=== PATIENT | female | born 1930 | race Caucasian/White ===

== ENCOUNTER → 2016-09-02 | Outpatient (CLI) | payer OTHER ==
[~2016-09-02] MED LIST: AMLO-110 PO; CALCTAB7 PO; CITA20TA9 PO; CLOP1TAB54 PO; CYCL0.05 OPB; CYCL0.052 OPB; FLNIN NAE; FLUT0.15 NAE; GLUCTAB7 PO; IMD2X PO; LACT10SO17 PO; LCTL45 PO; MECL1TAB42 PO; MIRA1TAB3 PO; MOML PO; MULT-116 PO; OMEG10007 PO; OMEP40CA PO; OMEP40CA41 PO; OXYC-57 PO; OXYC15TA89 PO; PHEN32.44 PO; POLY1POW2 PO; PRNJ PO; PROTEIN LIQUID PO; SENN-65 PO; SENN-91 PO; TIZA4CAP PO; TIZA4TAB3 PO; [UNRECOGNIZED DRUG - CODE] MT; [UNRECOGNIZED DRUG - CODE] PO
== END ==
LOC: C.LABCC 08:16
PROVIDERS: ATTEND Internal Medicine
DX: G40.909 Epilepsy, unspecified, not intractable, without status epilepticus (principal)

== ENCOUNTER → 2016-12-10 | Outpatient (CLI) | payer OTHER ==
[~2016-12-10] MED LIST changes: +CYCL0.05 OP; -CYCL0.05 OPB; -CYCL0.052 OPB; -FLUT0.15 NAE; -LACT10SO17 PO; -OMEP40CA41 PO; -SENN-91 PO; -TIZA4TAB3 PO; -[UNRECOGNIZED DRUG - CODE] PO
[2016-12-10 08:30] LABS: BASO % 0.3 %; BASO ABS # 0.02 K/uL (0-0.2); COMPLETE YES; EOS % 3.4 %; HEMATOCRIT 40.5 % (37-47); LYMPH % 31.2 %; LYMPH ABS # 2.19 K/uL (1.2-3.4); MEAN CELL VOLUME 88.2 fL (80-100); MEAN CORPUSCULAR HEMOGLOBIN 28.8 pg (25-34); MEAN CORPUSCULAR HGB CONC 32.6 g/dl (32-36); MEAN PLATELET VOLUME 9.6 fL (7.4-10.4); MONO % 10.1 %; PLATELET COUNT 238 K/uL (130-400); RED BLOOD COUNT 4.59 M/uL (4.2-5.4); WHITE BLOOD COUNT 7.01 K/uL (4.8-10.8)
[2016-12-10 08:44] LABS: BLOOD UREA NITROGEN 23 mg/dl (7-18); BUN/CREATININE RATIO 30.8 (10-20); CALCIUM 9.1 mg/dl (8.5-10.1); CARBON DIOXIDE 30 mmol/L (21-32); CHLORIDE 103 mmol/L (98-107); CREATININE 0.73 mg/dl (0.60-1.20); GLUCOSE 89 mg/dl (70-99); POTASSIUM 3.9 mmol/L (3.5-5.1); SODIUM 138 mmol/L (136-145)
== END ==
LOC: C.LABCC 07:54
PROVIDERS: ATTEND Internal Medicine
DX: F32.9 Major depressive disorder, single episode, unspecified (principal); M25.50 Pain in unspecified joint; M81.0 Age-related osteoporosis without current pathological fracture

== ENCOUNTER → 2017-03-16 | Outpatient (CLI) | payer OTHER ==
[~2017-03-16] MED LIST changes: -CYCL0.05 OP; +CYCL0.05 OPB; +CYCL0.052 OPB; +FLUT0.15 NAE; +LACT10SO17 PO; +OMEP40CA41 PO; +SENN-91 PO; +TIZA4TAB3 PO; +[UNRECOGNIZED DRUG - CODE] PO
[2017-03-16 09:04] LABS: ALT/SGPT 43 U/L (12-78); BLOOD UREA NITROGEN 28 mg/dl (7-18); BUN/CREATININE RATIO 43.2 (10-20); CALCIUM 8.8 mg/dl (8.5-10.1); CARBON DIOXIDE 31 mmol/L (21-32); CHLORIDE 101 mmol/L (98-107); CHOLESTEROL 166 mg/dl (0-200); CREATININE 0.65 mg/dl (0.60-1.20); GLUCOSE 87 mg/dl (70-99); POTASSIUM 3.7 mmol/L (3.5-5.1); SODIUM 139 mmol/L (136-145); TRIGLYCERIDES 90 mg/dl (0-150); VERY LOW DENSITY LIPOPROT CALC 18 mg/dl
[2017-03-16 09:07] LABS: ALB/GLOB RATIO 0.7 (0.9-2); ALKALINE PHOSPHATASE 97 U/L (45-117); AST/SGOT 27 U/L (15-37); CHOLESTEROL/HDL RATIO 2.8; HDL CHOLESTEROL 59 mg/dl; LDL CHOLESTEROL CALCULATED 89 mg/dl
== END ==
LOC: C.LABCC 07:58
PROVIDERS: ATTEND Internal Medicine
DX: N18.9 Chronic kidney disease, unspecified (principal); I63.9 Cerebral infarction, unspecified; R56.9 Unspecified convulsions

== ENCOUNTER 2017-04-01 15:23 | Inpatient (IN) | payer OTHER ==
[~2017-04-01] VITALS: Ht 167.6 cm; Wt 66.0 kg
[~2017-04-01 15:23] MED LIST changes: -CITA20TA9 PO; -CYCL0.052 OPB; -FLUT0.15 NAE; -LACT10SO17 PO; -MECL1TAB42 PO; -MIRA1TAB3 PO; -MULT-116 PO; -OMEP40CA41 PO; -PROTEIN LIQUID PO; -SENN-91 PO; -TIZA4TAB3 PO; -[UNRECOGNIZED DRUG - CODE] PO
[2017-04-01] MEDS ORDERED: SENN-91 PO (16:09)
[2017-04-01] MEDS ORDERED: [UNRECOGNIZED DRUG - CODE] PO (16:09)
[2017-04-01] MEDS ORDERED: LACT10SO17 PO (16:09)
[2017-04-01] MEDS ORDERED: OXYC-57 PO (16:09)
[2017-04-01] MEDS ORDERED: OMEP40CA41 PO (16:09)
[2017-04-01] MEDS ORDERED: TIZA4TAB3 PO (16:09)
[2017-04-01] MEDS ORDERED: FLUT0.15 NAE (16:11)
[2017-04-01] MEDS ORDERED: CYCL0.052 OPB (16:11)
[2017-04-01 16:20] LABS: BASO % 0.1 %; BASO ABS # 0.01 K/uL (0-0.2); COMPLETE YES; HEMATOCRIT 46.9 % (37-47); IG% 0.3 %; LYMPH % 5.2 %; MEAN CELL VOLUME 86.2 fL (80-100); MEAN CORPUSCULAR HEMOGLOBIN 31.3 pg (25-34); MEAN CORPUSCULAR HGB CONC 36.2 g/dl (32-36); MEAN PLATELET VOLUME 9.6 fL (7.4-10.4); MONO % 6.5 %; NEUT % 87.9 %; PLATELET COUNT 240 K/uL (130-400); RED BLOOD COUNT 5.44 M/uL (4.2-5.4); WHITE BLOOD COUNT 17.19 K/uL (4.8-10.8)
[2017-04-01 16:28] LABS: INR 1.1 (0.9-1.1); PARTIAL THROMBOPLASTIN RATIO 1.2; PROTHROMBIN TIME (PATIENT) 11.3 SECONDS (9.0-12.0)
[2017-04-01 16:28] LABS: ISTAT CREATININE 0.6 mg/dl (0.6-1.3); ISTAT HEMOGLOBIN 16.3 g/dl (12.0-16.0); ISTAT IONIZED CALCIUM 1.13 mmol/l (1.12-1.32)
[2017-04-01 16:38] LABS: ALT/SGPT 104 U/L (12-78); BLOOD UREA NITROGEN 18 mg/dl (7-18); BUN/CREATININE RATIO 22.3 (10-20); CARBON DIOXIDE 26 mmol/L (21-32); CHLORIDE 95 mmol/L (98-107); CREATININE 0.82 mg/dl (0.60-1.20); GLUCOSE 218 mg/dl (70-99); POTASSIUM 3.1 mmol/L (3.5-5.1); SODIUM 131 mmol/L (136-145)
--- NOTE | 2017-04-01 16:42 | DIAGNOSTIC IMAGING REPORT ---
CT SCAN OF THE BRAIN WITHOUT IV CONTRAST CLINICAL HISTORY: Change in mental status. COMPARISON STUDY: CT of the brain dated 04/05/2016. TECHNIQUE: Unenhanced axial CT scan of the brain is performed from the vertex to the skull base. FINDINGS: Brain parenchyma: There are age-related involutional changes noting mild to moderate patchy subcortical and periventricular microangiopathic change. There is no hemorrhage, mass effect, or evidence of acute territorial ischemia by CT criteria. Small chronic lacunar infarcts are identified in the caudate heads. Schuler-white matter is preserved. No extra-axial fluid collection is seen. Ventricles, sulci, cisterns: Prominent secondary to involutional change. Intracranial vasculature: There is atherosclerotic calcification of the cavernous carotid and vertebral arteries. Calvarium: Unremarkable. Sinuses and mastoids: The visualized paranasal sinuses are clear. The mastoid air cells are well pneumatized. Orbits: The bony orbits are grossly intact. There are bilateral ocular lens implants. IMPRESSION: Senescent changes as above with no hemorrhage, mass effect, or evidence of acute territorial ischemia by CT criteria. Electronically signed by: Jovi Walker M.D. 04/01/2017 4:41 PM Dictated Date/Time: 04/01/2017 4:38 PM
[2017-04-01 16:43] LABS: ALKALINE PHOSPHATASE 125 U/L (45-117); AST/SGOT 94 U/L (15-37)
[2017-04-01] MEDS ORDERED: OPTIRAY 320 IV PRN (16:45)
--- NOTE | 2017-04-01 16:51 | DIAGNOSTIC IMAGING REPORT ---
CT ANGIOGRAPHY OF THE CHEST, PULMONARY EMBOLUS PROTOCOL CLINICAL HISTORY: Right-sided chest pain. Shortness of breath. Evaluate for pulmonary embolus. COMPARISON STUDY: Chest CT April 05, 2016. TECHNIQUE: Following IV administration of 88 mL of Optiray-320, helical axial images of the chest were obtained utilizing the pulmonary embolus protocol. Maximal intensity projections and sagittal and coronal reformats were viewed on an independent 3D workstation. IV contrast was administered without complication. A dose lowering technique was utilized adhering to the principles of ALARA. CT DOSE: 838.94 mGy.cm FINDINGS: This exam is significantly compromised by respiratory motion artifact. There is no central pulmonary embolus. The remainder of the pulmonary arteries are suboptimally assessed due to motion artifact. The heart is moderately enlarged. There is no pericardial effusion. There is extensive atherosclerotic plaque of the thoracic aorta without evidence of dissection. No pneumothorax or pleural effusion is present. Extensive secretions are noted within the left lower lobe bronchus extending into the segmental bronchi of the left lower lobe. There are also secretions within the right lower lobe segmental bronchi. There are bilateral lower lobe airspace opacities with mild volume loss. There is mild lingular opacity. A few old thoracic spine compression fractures are present. Upper abdomen is unremarkable. Left breast is surgically absent. There is no thoracic lymphadenopathy. A left lobe hypodense thyroid nodule is noted. IMPRESSION: 1. No central pulmonary emboli. Remainder of pulmonary arteries suboptimally assessed due to respiratory motion. 2. Extensive secretions within the bilateral lower lobe bronchi with mild bilateral lower lobe opacities. The findings raise the possibility of aspiration. 3. Moderate cardiomegaly. 4. Small hiatal hernia. Electronically signed by: Bishop Howell M.D. 04/01/2017 4:49 PM Dictated Date/Time: 04/01/2017 4:38 PM
[2017-04-01 16:57] LABS: URINE APPEARANCE CLOUDY (CLEAR); URINE COLOR DK YELLOW; URINE EPITHELIAL CELL AUTO >30 /lpf (0-5); URINE NITRITE NEG (NEG); URINE SPECIFIC GRAVITY 1.031 (1.000-1.030); UROBILINOGEN NEG (NEG)
[2017-04-01] MEDS ORDERED: LEVAQUIN 750MG / 150ML D5W IV ONE (17:00)
[2017-04-01] MEDS ORDERED: SODIUM CHLORIDE 0.9% 500ML 500 ML IV STA (17:02)
[2017-04-01 17:08] LABS: MANUAL MICROSCOPIC REQUIRED? NO; REVIEW REQ? YES
[2017-04-01 17:10] LABS: URINE BILIRUBIN NEG (NEG)
[2017-04-01 18:00] VITALS: BP 189/108; PULSE 117; PULSE 122; TEMP 37.3; O2SAT 92; Ht 167.6 cm; Wt 66.0 kg
[2017-04-01] MEDS: LABETALOL HCL IV 5 MG/ML 20ML IV PRN (18:44)
[2017-04-01] MEDS ORDERED: NITROGLYCERIN 0.4 MG SL PER TAB CHARGE SL PRN (18:45)
[2017-04-01] MEDS ORDERED: ONDANSETRON INJ 2 MG/ML 2 ML VIAL IV PRN (18:45)
[2017-04-01] MEDS ORDERED: ACETAMINOPHEN 325 MG TAB PO PRN (18:45)
[2017-04-01] MEDS ORDERED: CONSULT PHARMACY STA (18:50)
[2017-04-01] MEDS ORDERED: DEXTROSE 50% 50 ML SYR IV PRN (19:00)
[2017-04-01] MEDS ORDERED: GLUCAGON FOR INJ 1 MG VIAL SQ PRN (19:00)
[2017-04-01] MEDS ORDERED: GLUCOSE 10 TABS/TUBE PO PRN (19:00)
[2017-04-01] MEDS ORDERED: GLUCOSE 40% GEL 15 GM TUBE PO PRN (19:00)
[2017-04-01] MEDS ORDERED: LEVOFLOXACIN CONSULT ACTIVE PRN (19:15)
[2017-04-01] MEDS ORDERED: PIPERACILL/TAZOBAC CONSULT ACTIVE PRN (19:15)
--- NOTE | 2017-04-01 19:21 | EMERGENCY ROOM VISIT NOTE ---
History Report prepared by Abebe: Carlos Hilton Under the Supervision of: Dr. Leif Burger M.D. First contact with patient: 15:29 Chief Complaint: SHORTNESS OF BREATH Stated Complaint: SOB History of Present Illness The patient is a 86 year old female who presents to the Emergency Room with complaints of a sore throat that began last week. This history is limited secondary to the patient's dementia. The patient is bed ridden in a senior living. At this time, the patient began complaining of a sore throat which then progressed to an altered mental status over the past three days. The patient is currently short of breath, experiencing right sided chest pain with deep inhalation, and complaining of pain to her legs and buttocks. Source of History: senior living notes History Limited By: dementia Onset: 1 week ago Position: throat Symptom Intensity: moderate Quality: other (Soreness) Timing: constant Associated Symptoms: + chest pain (right sided with inhalation), + SOB Note: She is having bilateral leg pain and pain to her buttocks. Along with this, she is more mentally altered. Review of Systems ROS is limited secondary to the patient's dementia. Past Medical & Surgical Medical Problems: (1) Breast cancer (2) Breast cancer (3) CKD (chronic kidney disease), stage III (4) CVA (cerebral vascular accident) (5) Dehydration (6) HTN (hypertension) (7) Multiple sclerosis (8) Osteoarthritis (9) Pneumonia (10) PVD (peripheral vascular disease) (11) Seizure disorder (12) Stroke Surgical Problems: (1) H/O left mastectomy (2) S/P surgical manipulation of ankle joint Family History Omitted secondary to the patient's age. Social History Smoking Status: Never Smoker Marital Status: Housing Status: senior living Occupation Status: retired Current/Historical Medications Scheduled Amlodipine (Norvasc), 5 MG PO DAILY Calcium Carbonate-Vitamin D W/ (Caltrate 600 Plus), 2 TABS PO DAILY Citalopram Hydrobromide (Celexa), 20 MG PO DAILY Clopidogrel Bisulfate (Plavix), 75 MG PO DAILY Cyclosporine (Ophth) (Restasis), 1 DROP OPB Q12 Fish Oil ([place]wick-3), 1,200 MG PO DAILY Fluticasone Propionate (Nasal) (Flonase Allergy Relief), 2 SPRAYS VLADISLAV DAILY Wjintnsqbup-Xklhgzpkvpe-Gkl C- (Glucosamine Chondroitin), 1 TAB PO BID Meclizine Hcl (Meclizine Hcl), 25 MG PO QAM Mirabegron (Myrbetriq Er), 50 MG PO DAILY Multiple Vitamins W/ Minerals (Theragran-M), 1 TAB PO QAM Omeprazole (Prilosec), 40 MG PO DAILY Oxycodone HCl (Oxycodone HCl ER), 15 MG PO Q12 Sennosides-Docusate Sodium (Senna S), 2 TABS PO BID Tizanidine Hcl (Zanaflex), 4 MG PO DAILY [Protein Liquid], 30 ML PO BID Scheduled PRN Lactulose (Chronulac), 45 ML PO BID PRN for Constipation Oxycodone/Acetaminophen 5MG/325MG (Percocet 5MG/325MG), 1 TABLET PO Q4H PRN for Pain Oxycodone/Acetaminophen 5MG/325MG (Percocet 5MG/325MG), 2 TABS PO Q4H PRN for Severe Pain Allergies Coded Allergies: Adhesives (Verified Allergy, Mild, RASH AND BLISTERING, 02/08/16) Hydantoins (Verified Allergy, Unknown, 02/08/16) Mesalamine (Verified Allergy, Unknown, 02/08/16) Phenytoin (Verified Allergy, Unknown, 02/08/16) Physical Exam Vital Signs Date Time Temp Pulse Resp B/P (MAP) Pulse Ox O2 Delivery O2 Flow Rate FiO2 04/01/17 16:19 126 04/01/17 15:30 36.9 118 26 196/114 87 Room Air 04/01/17 15:30 94 Nasal Cannula 6.0 04/01/17 15:30 93 Nasal Cannula 6.0 Physical Exam Constitutional: Vital signs reviewed. Eyes: Pupils are equal round reactive to light. Conjunctiva are noninjected. ENT: Pharynx is clear without erythema or exudate. Mucous membranes are dry. Neck supple without meningeal signs. Respiratory: Rhonchi bilaterally. O2Sat at high 80's on room air. Breath sounds are equal bilaterally. Cardiovascular: Tachycardic. Heart rate 115. No rubs or gallops. GI: Soft, nondistended and nontender. Bowel sounds are present. Musculoskeletal: No peripheral edema. No lower extremity tenderness. Integumentary: No cyanosis. Neurological: The patient is awake and alert. Cranial nerves II-XII are intact. Motor is 5 out of 5 all extremities. Sensation is intact to light touch all extremities. Normal speech. No pronator drift. No limb ataxia. Psychiatric: Normal affect. Medical Decision & Procedures ER Provider Diagnostic Interpretation: Radiology results as stated below per my review and the radiologist's interpretation: CT SCAN OF THE BRAIN WITHOUT IV CONTRAST CLINICAL HISTORY: Change in mental status. COMPARISON STUDY: CT of the brain dated 04/05/2016. TECHNIQUE: Unenhanced axial CT scan of the brain is performed from the vertex to the skull base. FINDINGS: Brain parenchyma: There are age-related involutional changes noting mild to moderate patchy subcortical and periventricular microangiopathic change. There is no hemorrhage, mass effect, or evidence of acute territorial ischemia by CT criteria. Small chronic lacunar infarcts are identified in the caudate heads. Schuler-white matter is preserved. No extra-axial fluid collection is seen. Ventricles, sulci, cisterns: Prominent secondary to involutional change. Intracranial vasculature: There is atherosclerotic calcification of the cavernous carotid and vertebral arteries. Calvarium: Unremarkable. Sinuses and mastoids: The visualized paranasal sinuses are clear. The mastoid air cells are well pneumatized. Orbits: The bony orbits are grossly intact. There are bilateral ocular lens implants. IMPRESSION: Senescent changes as above with no hemorrhage, mass effect, or evidence of acute territorial ischemia by CT criteria. Electronically signed by: Jovi Walker M.D. 04/01/2017 4:41 PM Dictated Date/Time: 04/01/2017 4:[address] ANGIOGRAPHY OF THE CHEST, PULMONARY EMBOLUS PROTOCOL CLINICAL HISTORY: Right-sided chest pain. Shortness of breath. Evaluate for pulmonary embolus. COMPARISON STUDY: Chest CT April 05, 2016. TECHNIQUE: Following IV administration of 88 mL of Optiray-320, helical axial images of the chest were obtained utilizing the pulmonary embolus protocol. Maximal intensity projections and sagittal and coronal reformats were viewed on an independent 3D workstation. IV contrast was administered without complication. A dose lowering technique was utilized adhering to the principles of ALARA. CT DOSE: 838.94 mGy.cm FINDINGS: This exam is significantly compromised by respiratory motion artifact. There is no central pulmonary embolus. The remainder of the pulmonary arteries are suboptimally assessed due to motion artifact. The heart is moderately enlarged. There is no pericardial effusion. There is extensive atherosclerotic plaque of the thoracic aorta without evidence of dissection. No pneumothorax or pleural effusion is present. Extensive secretions are noted within the left lower lobe bronchus extending into the segmental bronchi of the left lower lobe. There are also secretions within the right lower lobe segmental bronchi. There are bilateral lower lobe airspace opacities with mild volume loss. There is mild lingular opacity. A few old thoracic spine compression fractures are present. Upper abdomen is unremarkable. Left breast is surgically absent. There is no thoracic lymphadenopathy. A left lobe hypodense thyroid nodule is noted. IMPRESSION: 1. No central pulmonary emboli. Remainder of pulmonary arteries suboptimally assessed due to respiratory motion. 2. Extensive secretions within the bilateral lower lobe bronchi with mild bilateral lower lobe opacities. The findings raise the possibility of aspiration. 3. Moderate cardiomegaly. 4. Small hiatal hernia. Electronically signed by: Bishop Howell M.D. 04/01/2017 4:49 PM Dictated Date/Time: 04/01/2017 4:38 PM Laboratory Results 04/01/17 16:08 Red Blood Count 5.44, Mean Corpuscular Volume 86.2, Mean Corpuscular Hemoglobin 31.3, Mean Corpuscular Hemoglobin Concent 36.2, Mean Platelet Volume 9.6, Neutrophils (%) (Auto) 87.9, Lymphocytes (%) (Auto) 5.2, Monocytes (%) (Auto) 6.5, Eosinophils (%) (Auto) 0.0, Basophils (%) (Auto) 0.1, Neutrophils # (Auto) 15.10, Lymphocytes # (Auto) 0.90, Monocytes # (Auto) 1.12, Eosinophils # (Auto) 0.00, Basophils # (Auto) 0.01 04/01/17 16:08 Test 04/01/17 15:50 04/01/17 16:08 04/01/17 16:15 Urine Color DK YELLOW Urine Appearance CLOUDY (CLEAR) Urine pH 5.0 (4.5-7.5) Urine Specific [place] 1.031 (1.000-1.030) Urine Protein 3+ (NEG) Urine Glucose (UA) 3+ (NEG) Urine Ketones 1+ (NEG) Urine Occult Blood 2+ (NEG) Urine Nitrite NEG (NEG) Urine Bilirubin NEG (NEG) Urine Urobilinogen NEG (NEG) Urine Leukocyte Esterase NEG (NEG) Urine WBC (Auto) 1-5 /hpf (0-5) Urine RBC (Auto) 10-30 /hpf (0-4) Urine Hyaline Casts (Auto) 5-10 /lpf (0-5) Urine Epithelial Cells (Auto) >30 /lpf (0-5) Urine Bacteria (Auto) 1+ (NEG) Urine Renal Epithelial Cells /lpf (0-5) Urine Yeast (Auto) PRESENT (NONE PRSENT) White Blood Count 17.19 K/uL (4.8-10.8) Red Blood Count 5.44 M/uL (4.2-5.4) Hemoglobin 17.0 g/dL (12.0-16.0) Hematocrit 46.9 % (37-47) Mean Corpuscular Volume 86.2 fL (80-100) Mean Corpuscular Hemoglobin 31.3 pg (25-34) Mean Corpuscular Hemoglobin Concent 36.2 g/dl (32-36) Platelet Count 240 K/uL (130-400) Mean Platelet Volume 9.6 fL (7.4-10.4) Neutrophils (%) (Auto) 87.9 % Lymphocytes (%) (Auto) 5.2 % Monocytes (%) (Auto) 6.5 % Eosinophils (%) (Auto) 0.0 % Basophils (%) (Auto) 0.1 % Neutrophils # (Auto) 15.10 K/uL (1.4-6.5) Lymphocytes # (Auto) 0.90 K/uL (1.2-3.4) Monocytes # (Auto) 1.12 K/uL (0.11-0.59) Eosinophils # (Auto) 0.00 K/uL (0-0.5) Basophils # (Auto) 0.01 K/uL (0-0.2) RDW Standard Deviation 43.1 fL (36.4-46.3) RDW Coefficient of Variation 13.8 % (11.5-14.5) Immature Granulocyte % (Auto) 0.3 % Immature Granulocyte # (Auto) 0.06 K/uL (0.00-0.02) Prothrombin Time 11.3 SECONDS (9.0-12.0) Prothromb Time International Ratio 1.1 (0.9-1.1) Activated Partial Thromboplast Time 30.8 SECONDS (21.0-31.0) Partial Thromboplastin Ratio 1.2 Est Creatinine Clear Calc Drug Dose 46.1 ml/min Estimated GFR () 75.1 Estimated GFR (Non- 64.8 BUN/Creatinine Ratio 22.3 (10-20) Calcium Level 10.0 mg/dl (8.5-10.1) Total Bilirubin 1.1 mg/dl (0.2-1) Direct Bilirubin 0.5 mg/dl (0-0.2) Aspartate Amino Transf (AST/SGOT) 94 U/L (15-37) Alanine Aminotransferase (ALT/SGPT) 104 U/L (12-78) Alkaline Phosphatase 125 U/L (45-117) Ammonia 10.1 umol/L (11-32) Troponin I < 0.015 ng/ml (0-0.045) Total Protein 8.0 gm/dl (6.4-8.2) Albumin 3.3 gm/dl (3.4-5.0) Procalcitonin 0.18 ng/ml (0-0.5) Bedside Hemoglobin 16.3 g/dl (12.0-16.0) Bedside Hematocrit 48 % (37-47) Bedside Sodium 135 mEq/L (135-144) Bedside Potassium 3.2 mEq/L (3.3-5.0) Bedside Chloride 94 mEq/L (101-112) Bedside Total CO2 26 mEq/l (24-31) Anion Gap 19.0 mmol/L (16-25) Bedside Blood Urea Nitrogen 18 mg/dl (7-18) Bedside Creatinine 0.6 mg/dl (0.6-1.3) Bedside Glucose (other) 226 mg/dl (70-99) Bedside Ionized Calcium (Kaden) 1.13 mmol/l (1.12-1.32) Laboratory results as reviewed by me. ECG Indication: altered mental status, SOB/dyspnea Rate (beats per minute): 117 Rhythm: sinus tachycardia Findings: nonspecific-ST abn, no ectopy, other (No ST elevations) ED Course 1529: The patient was evaluated in room A11B. A complete history and physical exam was performed. 1700: Ordered Levofloxacin 750 mg IV 1702: Ordered Sodium Chloride 500 ml @ 999 mls/hr IV 1700: I updated the patient and her family at this time. We discussed her tests results. She is still tachycardic with a rate of 83 and a pulse ox of 83% on 6L of oxygen. 1716: [facility]. We discussed the patient and her results. The patient will be further evaluated by them as an inpatient. Medical Decision This is an 86-year-old female presents with shortness breath, change in mental status and hypoxia. Differential diagnosis includes pulmonary embolism, acute coronary syndrome, pneumonia, pleural effusion, sepsis. I did perform a limited focused review of portions of the patient's old chart on the electronic medical record. The patient has had no recent pertinent visits to this hospital. I did evaluate the patient as noted above. I did obtain history from the patient as well as the nurses due to her dementia. She had a sore throat about a week ago and then became increasingly confused over the past several days. She complains of some right-sided chest discomfort in the lower chest when she takes a deep breath. She also says she is slightly short of breath. She is hypoxemic. She was given supplemental oxygen via nasal cannula. IV access was established. The patient was placed on a continuous cardiac tech. I did order and personally review the patient's 12-lead EKG as described above. I did order and review the patient's blood work as noted in the electronic medical record. Her white blood cell count and lactic acid were elevated. Blood cultures were obtained. I did order a CT of the chest. I did review the images myself as well as the radiology report as described above. There is no evidence of pulmonary embolism. She does have bilateral basilar infiltrates. I did treat her with IV Levaquin. I did discuss the test results with the patient and her family member. I did discuss the case with the hospitalist and case liner. Medication Reconcilliation Current Medication List: was personally reviewed by me Blood Pressure Screening Patient's blood pressure: Elevated blood pressure Blood pressure disposition: Referred to PCP Consults Time Called: 1713 Consulting Physician: Dr. Toussaint - [facility] Returned Call: [phone] We discussed the patient's case. They will be evaluating the patient for further management. Impression Primary Impression: Bilateral pneumonia Additional Impressions: Change in mental status Hypoxia Scribe Attestation The scribe's documentation has been prepared under my direct and personally reviewed by me in its entirety. I confirm that the note above accurately reflects all work, treatment, procedures, and medical decision making performed by me. Departure Information Dispostion Being Evaluated By Hospitalist Referrals No Doctor, Assigned (PCP) Patient Instructions My [facility] Problem Qualifiers Primary Impression: Bilateral pneumonia Pneumonia type: due to unspecified organism Lung location: lower lobe of lung Qualified Codes: J18.9 - Pneumonia, unspecified organism Additional Impressions: Change in mental status Altered mental status type: unspecified Qualified Codes: R41.82 - Altered mental status, unspecified
[2017-04-01] MEDS ORDERED: PIPERACILL/TAZOBAC IV 3.375 GM in DEXTROSE 5% 100ML IV ONE (19:30)
--- NOTE | 2017-04-01 19:32 | History and Physical ---
History & Physical Date & Time of Service: Apr 01, 2017 at 19:18 Chief Complaint: Pneumonia Primary Care Physician: Paula Doctor, Assigned History of Present Illness Source: patient, family, hospital records, long-term Patient is an 86 yr female with PMH of MS, PVD, CKD III, Breast cancer s/p mastectomy, HTN, Paget's disease, dementia, Seizure disorder, TIA, H/O multiple falls and other problems presents from [facility] for evaluation of Nausea, vomiting, diarrhea and chronic abdominal pain. Patient is a poor historian and most of the history is obtained from Patient's niece, ER staff and old records. Patient has been having sore throat and cough associated with fever since 2-3 days duration. Family also reports that she has chronic abdominal pain and developed nausea, vomiting diarrhea since 2 days. She was noted to have high blood pressure and increased heart rate and so was sent to ED for further evaluation. Patient was found to be hypoxic in ED and complained of pleuritic chest pain. She is oriented and mental status seemed to be at baseline. She complains of generalized abdominal pain. No known history of aspiration per family. Also no recent antibiotic use. No other history could be obtained as patient has dementia and is poor historian. Past Medical/Surgical History Medical Problems: (1) Breast cancer Status: Chronic (2) CKD (chronic kidney disease), stage III Status: Chronic (3) CVA (cerebral vascular accident) Status: Chronic (4) HTN (hypertension) Status: Chronic (5) Multiple sclerosis Status: Chronic (6) Osteoarthritis Status: Chronic (7) PVD (peripheral vascular disease) Status: Chronic (8) Seizure disorder Status: Chronic Surgical Problems: (1) H/O left mastectomy Status: Chronic (2) S/P surgical manipulation of ankle joint Status: Chronic Family History could not be obtained Social History Smoking Status: Never Smoker Smokeless Tobacco Use: No Drug Use: none Marital Status: Housing status: assisted living Occupational Status: retired Immunizations History of Influenza Vaccine: Yes Influenza Vaccine Date: Jan 26, 2015 History of Tetanus Vaccine?: Yes Tetanus Immunization Date: Jun 26, 2011 History of Pneumococcal: Yes Pneumococcal Date: Jan 26, 2015 Multi-Drug Resistant Organisms History of MDRO: No Allergies Coded Allergies: Adhesives (Verified Allergy, Mild, RASH AND BLISTERING, 02/08/16) Hydantoins (Verified Allergy, Unknown, 02/08/16) Mesalamine (Verified Allergy, Unknown, 02/08/16) Phenytoin (Verified Allergy, Unknown, 02/08/16) Home Medications Scheduled Amlodipine (Norvasc), 5 MG PO DAILY Calcium Carbonate-Vitamin D W/ (Caltrate 600 Plus), 2 TABS PO DAILY Citalopram Hydrobromide (Celexa), 20 MG PO DAILY Clopidogrel Bisulfate (Plavix), 75 MG PO DAILY Cyclosporine (Ophth) (Restasis), 1 DROP OPB Q12 Fish Oil ([place]-3), 1,200 MG PO DAILY Fluticasone Propionate (Nasal) (Flonase Allergy Relief), 2 SPRAYS VLADISLAV DAILY Gsucaajerid-Pepzppzmqmv-Xco C- (Glucosamine Chondroitin), 1 TAB PO BID Meclizine Hcl (Meclizine Hcl), 25 MG PO QAM Mirabegron (Myrbetriq Er), 50 MG PO DAILY Multiple Vitamins W/ Minerals (Theragran-M), 1 TAB PO QAM Omeprazole (Prilosec), 40 MG PO DAILY Oxycodone HCl (Oxycodone HCl ER), 15 MG PO Q12 Sennosides-Docusate Sodium (Senna S), 2 TABS PO BID Tizanidine Hcl (Zanaflex), 4 MG PO DAILY [Protein Liquid], 30 ML PO BID Scheduled PRN Lactulose (Chronulac), 45 ML PO BID PRN for Constipation Oxycodone/Acetaminophen 5MG/325MG (Percocet 5MG/325MG), 1 TABLET PO Q4H PRN for Pain Oxycodone/Acetaminophen 5MG/325MG (Percocet 5MG/325MG), 2 TABS PO Q4H PRN for Severe Pain Review of Systems could not be obtained Physical Exam Vital Signs Date Time Temp Pulse Resp B/P (MAP) Pulse Ox O2 Delivery O2 Flow Rate FiO2 04/01/17 18:00 37.3 117 20 189/108 (135) 92 Nasal Cannula 4.0 04/01/17 16:19 126 04/01/17 15:30 36.9 118 26 196/114 87 Room Air 04/01/17 15:30 94 Nasal Cannula 6.0 04/01/17 15:30 93 Nasal Cannula 6.0 General Appearance: WD/WN, + pertinent finding (mild distress ) Head: normocephalic, atraumatic Eyes: normal inspection, PERRL, EOMI, sclerae normal ENT: normal ENT inspection, hearing grossly normal Neck: supple, trachea midline Respiratory/Chest: no accessory muscle use, + decreased breath sounds, + rhonchi, + pertinent finding (mild chest tenderness) Cardiovascular: regular rate, rhythm, no edema, no murmur, + tachycardia Abdomen/GI: normal bowel sounds, soft, + tenderness (generalized, no rebound, guarding) Back: normal inspection Extremities/Musculoskelatal: normal inspection, no pedal edema Neurologic/Psych: vacuum kettle cook II-XII nml as tested, no motor/sensory deficits (able to move all extremities), alert, normal mood/affect, oriented x 3 Skin: normal color, warm/dry Diagnostics Laboratory Results Results Past 24 Hours Test 04/01/17 15:50 04/01/17 16:08 04/01/17 16:15 04/01/17 17:32 Range/Units Urine Color DK YELLOW Urine Appearance CLOUDY CLEAR Urine pH 5.0 4.5-7.5 Urine Specific [place] 1.031 1.000-1.030 Urine Protein 3+ NEG Urine Glucose (UA) 3+ NEG Urine Ketones 1+ NEG Urine Occult Blood 2+ NEG Urine Nitrite NEG NEG Urine Bilirubin NEG NEG Urine Urobilinogen NEG NEG Urine Leukocyte Esterase NEG NEG Urine WBC (Auto) 1-5 0-5 /hpf Urine RBC (Auto) 10-30 0-4 /hpf Urine Hyaline Casts (Auto) 5-10 0-5 /lpf Urine Epithelial Cells (Auto) >30 0-5 /lpf Urine Bacteria (Auto) 1+ NEG Urine Renal Epithelial Cells 0-5 /lpf Urine Yeast (Auto) PRESENT NONE PRSENT White Blood Count 17.19 4.8-10.8 K/uL Red Blood Count 5.44 4.2-5.4 M/uL Hemoglobin 17.0 12.0-16.0 g/dL Hematocrit 46.9 37-47 % Mean Corpuscular Volume 86.2 80-100 fL Mean Corpuscular Hemoglobin 31.3 25-34 pg Mean Corpuscular Hemoglobin Concent 36.2 32-36 g/dl Platelet Count 240 130-400 K/uL Mean Platelet Volume 9.6 7.4-10.4 fL Neutrophils (%) (Auto) 87.9 % Lymphocytes (%) (Auto) 5.2 % Monocytes (%) (Auto) 6.5 % Eosinophils (%) (Auto) 0.0 % Basophils (%) (Auto) 0.1 % Neutrophils # (Auto) 15.10 1.4-6.5 K/uL Lymphocytes # (Auto) 0.90 1.2-3.4 K/uL Monocytes # (Auto) 1.12 0.11-0.59 K/uL Eosinophils # (Auto) 0.00 0-0.5 K/uL Basophils # (Auto) 0.01 0-0.2 K/uL RDW Standard Deviation 43.1 36.4-46.3 fL RDW Coefficient of Variation 13.8 11.5-14.5 % Immature Granulocyte % (Auto) 0.3 % Immature Granulocyte # (Auto) 0.06 0.00-0.02 K/uL Prothrombin Time 11.3 9.0-12.0 SECONDS Prothromb Time International Ratio 1.1 0.9-1.1 Activated Partial Thromboplast Time 30.8 21.0-31.0 SECONDS Partial Thromboplastin Ratio 1.2 Sodium Level 131 136-145 mmol/L Potassium Level 3.1 3.5-5.1 mmol/L Chloride Level 95 98-107 mmol/L Carbon Dioxide Level 26 21-32 mmol/L Anion Gap 10.0 19.0 16-25 mmol/L Blood Urea Nitrogen 18 7-18 mg/dl Creatinine 0.82 0.60-1.20 mg/dl Est Creatinine Clear Calc Drug Dose 46.1 ml/min Estimated GFR () 75.1 Estimated GFR (Non- 64.8 BUN/Creatinine Ratio 22.3 10-20 Random Glucose 218 70-99 mg/dl Calcium Level 10.0 8.5-10.1 mg/dl Total Bilirubin 1.1 0.2-1 mg/dl Direct Bilirubin 0.5 0-0.2 mg/dl Aspartate Amino Transf (AST/SGOT) 94 15-37 U/L Alanine Aminotransferase (ALT/SGPT) 104 12-78 U/L Alkaline Phosphatase 125 45-117 U/L Ammonia 10.1 11-32 umol/L Troponin I < 0.015 0-0.045 ng/ml Total Protein 8.0 6.4-8.2 gm/dl Albumin 3.3 3.4-5.0 gm/dl Procalcitonin 0.18 0-0.5 ng/ml Bedside Hemoglobin 16.3 12.0-16.0 g/dl Bedside Hematocrit 48 37-47 % Bedside Sodium 135 135-144 mEq/L Bedside Potassium 3.2 3.3-5.0 mEq/L Bedside Chloride 94 101-112 mEq/L Bedside Total CO2 26 24-31 mEq/l Bedside Blood Urea Nitrogen 18 7-18 mg/dl Bedside Creatinine 0.6 0.6-1.3 mg/dl Bedside Glucose (other) 226 70-99 mg/dl Bedside Ionized Calcium (Kaden) 1.13 1.12-1.32 mmol/l Bedside Lactic Acid Venous 3.49 0.90-1.70 mmol/L Microbiology Results 04/01/17 Blood Culture, Received Pending 04/01/17 Blood Culture, Received Pending Diagnostic Radiology CTA: 1. No central pulmonary emboli. Remainder of pulmonary arteries suboptimally assessed due to respiratory motion. 2. Extensive secretions within the bilateral lower lobe bronchi with mild bilateral lower lobe opacities. The findings raise the possibility of aspiration. 3. Moderate cardiomegaly. 4. Small hiatal hernia. CT head: Senescent changes as above with no hemorrhage, mass effect, or evidence of acute territorial ischemia by CT criteria. EKG EKG: Sinus tachycardia, Non specific ST-T wave changes Impression Assessment and Plan Sepsis: Acute Hypoxic Respiratory failure: HCAP: ? Aspiration Pneumonia Presented with Hypoxia, 87 % on RA CTA :No pulmonary emboli. B/L lower lobe opacities. Possible aspiration Start on Broad spectrum IV abx (Zosyn, Levaquin) IV fluids Procalcitonin: normal POC lactate elevated Speech and swallow eval NPO for now Duonebs, Oxygen support Check ABG Aspiration precautions Pulmonology consulted Espinoza culture, flu screen Hypertensive Urgency: continue amlodipine Labetelol PRN Denies headache CT head: no acute process Nausea, Vomiting, diarrhea Chronic abdominal pain: Check CT abdomen IV fluids, anti emetics PRN check stool for c.diff Hypokalemia/Dehydration: Secondary to GI loses Replace and monitor IV fluids Elevated Glucose levels: No h/o DM Check A1C ISS H/O MS: Zanaflex PRN Follows with Dr.Matter as outpatient PVD: Continue plavix CKD III: Cr at baseline H/O Breast cancer s/p mastectomy complains of chest pain at surgical site trend Troponin, check ECHO Dementia: Mental status seemed to be at baseline CT head noted H/O Seizure disorder: Continue Phenobarbital H/O multiple falls PT/OT DVT Px: Heparin SQ Code Status: DNI/DNR on my discussion with patient's Niece (POA) and old records Disposition: Plan to discharge back to [facility] once medically stable social media developer consulted VTE Prophylaxis VTE Risk Assessment Done? Y/N: Yes Risk Level: Moderate
[2017-04-01] MEDS ORDERED: MECL1TAB42 PO (19:48)
[2017-04-01] MEDS ORDERED: MULT-116 PO (19:48)
[2017-04-01] MEDS ORDERED: PROTEIN LIQUID PO (19:48)
[2017-04-01] MEDS ORDERED: CITA20TA9 PO (19:48)
--- NOTE | 2017-04-01 19:57 | DIAGNOSTIC IMAGING REPORT ---
CT SCAN OF THE ABDOMEN AND PELVIS WITHOUT IV CONTRAST CLINICAL HISTORY: Generalized abdominal pain. COMPARISON STUDY: Abdominal CT dated 04/05/2016. TECHNIQUE: CT scan of the abdomen and pelvis is performed from the lung bases to the proximal femora. Images are reviewed in the axial, sagittal, and coronal planes. IV contrast was not administered for this examination as per the referring clinician. Note that the examination is performed in significantly suboptimal fashion without oral and IV contrast. A dose lowering technique was utilized adhering to the principles of ALARA. CT DOSE: 355.36 mGy.cm FINDINGS: Lung bases: The heart is normal in size and without pericardial effusion. The coronary arteries are densely calcified. Patchy airspace opacities are present dependently at both lung bases. Fluid/secretions are seen within the lower lobe airways. Trace pleural effusions are identified. Calcified mediastinal lymph nodes are partially imaged. A calcified granuloma is noted in the right lower lobe. Liver: The unenhanced liver is normal in size, contour, and attenuation. There is no intrahepatic biliary ductal dilatation. Gallbladder: The gallbladder is markedly distended. There is gallbladder wall thickening, with intraluminal gas and surrounding inflammatory stranding. Spleen: Normal in size and attenuation. Pancreas: The unenhanced pancreas is atrophic and grossly unremarkable. Adrenal glands: Unremarkable. Kidneys: The unenhanced kidneys are atrophic and without hydronephrosis. Renal calculi cannot be assessed for due to the presence of excreted contrast within the renal collecting system and ureters. A 3 cm cyst is present in the lower pole of the left kidney. Additional subcentimeter cortical hypodensities also likely represent cysts but are too small for definitive characterization. Abdominal vasculature: The abdominal aorta is normal in course and caliber noting advanced atherosclerotic calcification. Bowel: There is moderate sigmoid diverticulosis without CT evidence of acute diverticulitis. No bowel obstruction is seen. The appendix is not identified. Peritoneum: There is no intraperitoneal free air or abdominal ascites. Lymphadenopathy: None. Pelvic viscera: The bladder is filled with excreted contrast and grossly unremarkable. Calcified uterine fibroids are identified. No adnexal lesion is seen. Skeletal structures: The skeletal structures are osteopenic. There is moderate lumbosacral spondylosis and scoliosis. There is a moderate compression deformity of T10. A mild superior endplate compression deformities seen involving T8. 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 No lytic or blastic lesions are seen. IMPRESSION: 1. Significant suboptimal examination without oral and IV contrast. 2. Findings are consistent with acute cholecystitis. Surgical consultation is advised. 3. Moderate sigmoid diverticulosis without CT evidence of acute diverticulitis. 4. Patchy airspace opacities are seen dependently at both lung bases. There are trace pleural effusions, as well as fluid/secretions within the lower lobe airways. This could represent atelectasis versus pneumonia/aspiration pneumonitis. Clinical correlation will be required. 5. Additional findings as above. Electronically signed by: Jovi Walker M.D. 04/01/2017 7:56 PM Dictated Date/Time: 04/01/2017 7:48 PM
[2017-04-01] MEDS: NSS + 20MEQ KCL 1000ML 1,000 ML IV SCH (19:58)
[2017-04-01] MEDS: POTASSIUM CHLR 10 MEQ / WTR 10 MEQ in PREMIXED WATER 100 ML IV SCH ×3 (19:58→22:43)
[2017-04-01] MEDS ORDERED: MIRA1TAB3 PO (19:58)
[2017-04-01 20:00] VITALS: BP 169/100; PULSE 95; O2SAT 94
[2017-04-01] MEDS ORDERED: LEVOFLOXACIN 750MG / D5W IV SCH (20:00)
[2017-04-01] MEDS: ALBUT/IPRATROP 3MG/0.5MG NEB 3 ML VIAL INH SCH (20:00)
[2017-04-01 20:41] LABS: ARTERIAL BLD GAS O2 SATURATION 96.6 % (90-95); ARTERIAL BLOOD GAS BASE EXCESS 2.9 mEq/L (-9-1.8); ARTERIAL BLOOD GAS HCO3 26 mmol/L (19-24); ARTERIAL BLOOD GAS PO2 80 mm/Hg (80-95); ARTERIAL BLOOD GAS pH 7.49 (7.35-7.45)
[2017-04-01 20:42] LABS: ALLEN TEST POS (POS); O2 ADMINISTRATION 5
--- NOTE | 2017-04-01 20:57 | Progress Note ---
Progress Note Date of Service Apr 01, 2017. Progress Note CT ABDOMEN /PELVIS FOLLOW UP : Gallbladder: The gallbladder is markedly distended. There is gallbladder wall thickening, with intraluminal gas and surrounding inflammatory stranding. Finding suggestive of acute cholecystitis , surgical consult is requested Surgery consulted pt is already on Zosyn -which will be continued on Levaquin for pneumonia ordered for NPO , hold Aspirin , Plavix , sub heparin for possible surgical procedure
[2017-04-01] MEDS: INSULIN ASPART 100 UNITS/ML 3 ML PEN SC SCH (21:00)
[2017-04-01] MEDS ORDERED: OXYCODONE HCL 15 MG TABCR (OXYCONTIN) PO SCH (21:00)
[2017-04-01] MEDS: MoRPHine SULFATE 2 MG/ML CARP IV PRN (21:26)
[2017-04-01 21:38] LABS: INFLUENZA A PCR Neg for Influ A (NEG); INFLUENZA B PCR Neg for Influ B (NEG)
[2017-04-01] MEDS ORDERED: HEPARIN SOD 5000 UNIT/0.5 ML CARP SQ SCH (22:00)
[2017-04-01 23:08] VITALS: BP 156/101; PULSE 124; TEMP 36.6; O2SAT 95
[2017-04-01] MEDS: RESTASIS~ORDER AWAITING ACTION SCH (23:10)
[2017-04-01] MEDS ORDERED: SODIUM CHLORIDE 0.65% NA SOLN 45 ML (OCEAN) ONE (23:20)
[2017-04-02] VITALS (10 sets, daily range): BP systolic 156–203; BP diastolic 92–152; PULSE 96–115; TEMP 36.6–37.4; O2SAT 93–97
[2017-04-02] MEDS: POTASSIUM CHLR 10 MEQ / WTR 10 MEQ in PREMIXED WATER 100 ML IV SCH (00:49)
[2017-04-02] MEDS: LABETALOL HCL IV 5 MG/ML 20ML IV PRN ×3 (03:38→14:01)
[2017-04-02] MEDS: NSS + 20MEQ KCL 1000ML 1,000 ML IV SCH ×2 (03:40→12:34)
[2017-04-02] MEDS ORDERED: ENALAPRILAT IV 2.5 MG in DEXTROSE 5% 25ML 25 ML IV ONE (05:30)
[2017-04-02] MEDS: PIPERACILL/TAZOBAC IV 3.375 GM in DEXTROSE 5% 100ML IV SCH ×2 (05:48→13:30)
[2017-04-02] MEDS: INSULIN ASPART 100 UNITS/ML 3 ML PEN SC SCH ×3 (07:00→16:15)
[2017-04-02] MEDS: ALBUT/IPRATROP 3MG/0.5MG NEB 3 ML VIAL INH SCH ×3 (07:26→14:44)
[2017-04-02 07:34] LABS: BASO ABS # 0.01 K/uL (0-0.2); COMPLETE YES; HEMATOCRIT 43.6 % (37-47); IG% 0.3 %; LYMPH % 4.6 %; LYMPH ABS # 0.92 K/uL (1.2-3.4); MEAN CELL VOLUME 88.1 fL (80-100); MEAN CORPUSCULAR HEMOGLOBIN 30.3 pg (25-34); MEAN CORPUSCULAR HGB CONC 34.4 g/dl (32-36); MONO % 6.3 %; NEUT % 88.8 %; PLATELET COUNT 243 K/uL (130-400); RED BLOOD COUNT 4.95 M/uL (4.2-5.4)
--- NOTE | 2017-04-02 07:35 | Pre-Operative Consultation ---
History General Date of Service: Apr 02, 2017. HPI HPI: The patient is a 86 year old female being seen for possible acute cholecystitis. She presents to the ED with complaints of a sore throat that began last week from the [facility]. She has significant dementia and is bed ridden in a [facility]. She became progressively more agitated and had altered mental status over the past three days. The patient is currently short of breath, experiencing right sided chest pain with deep inhalation, and complaining of pain to her legs and buttocks. A CT scan shows possible acute cholecystitis. Historian: patient Procedure Urgency: Acute Risk Assessment Daily beta shaneka use?: Yes Beta Shaneka Details Indication Beta Shaneka use: hypertension Problem List Medical Problems: (1) Bilateral pneumonia Status: Acute (2) Change in mental status Status: Acute (3) Hypoxia Status: Acute (4) Left sided chest pain Status: Acute (5) Lower back pain Status: Acute Medical & Surgical History Past Medical History: arthritis, cancer - breast, CVA/TIA/stroke, GERD, hypertension, osteoarthritis, pneumonia, previous fracture, renal disease, other (MS) Past Surgical History: mastectomy, other (ankle joint replacement) Family History Family History: no pertinent family hx Social History Hx Tobacco Use In Past Year?: No Smoking Status: Never Smoker Drug Use: none Marital status: Housing status: assisted living Occupation status: retired Immunizations Have You Had Influenza Vaccine: Yes Date Of Influenza Vaccine: Jan 26, 2015 Have You Had Tetanus Vaccine: Yes Date Of Tetanus Immunization: Jun 26, 2011 History of Pneumococcal: Yes Date of Pneumococcal Vaccine: Jan 26, 2015 Allergies Allergies: Coded Allergies: Adhesives (Verified Allergy, Mild, RASH AND BLISTERING, 02/08/16) Hydantoins (Verified Allergy, Unknown, 02/08/16) Mesalamine (Verified Allergy, Unknown, 02/08/16) Phenytoin (Verified Allergy, Unknown, 02/08/16) Medications Current Inpatient Medications Current Inpatient Medications Medications (Trade) Dose Ordered Sig/Phil Route Start Time Stop Time Status Last Admin Dose Admin Ioversol (Optiray 320) 100 ml UD PRN IV 04/01/17 16:45 04/05/17 16:44 Labetalol HCl (Normodyne IV) 10 mg Q6H PRN IV 04/01/17 18:30 05/01/17 18:29 04/02/17 03:38 10 MG Potassium Chloride/Sodium Chloride 1,000 ml @ 125 mls/hr Q8H IV 04/01/17 19:30 05/01/17 19:29 04/02/17 03:40 125 MLS/HR Acetaminophen (Tylenol Tab) 650 mg Q4H PRN PO 04/01/17 18:45 05/01/17 18:44 Ondansetron HCl (Zofran Inj) 4 mg Q6H PRN IV 04/01/17 18:45 05/01/17 18:44 Nitroglycerin (Nitrostat Tab) 0.4 mg UD PRN SL 04/01/17 18:45 05/01/17 18:44 Albuterol/ Ipratropium (Duoneb) 3 ml QIDR INH 04/01/17 20:00 05/01/17 19:59 Insulin Aspart (novoLOG ASPART) SLIDING SCALE If C... ACHS SC 04/01/17 21:00 05/01/17 20:59 Glucose (Glucose 40% Gel) 15-30 GRAMS 15 GRAMS... UD PRN PO 04/01/17 19:00 05/01/17 18:59 Glucose (Glucose Chew Tab) 4-8 Tablets 4 Tabl... UD PRN PO 04/01/17 19:00 05/01/17 18:59 Dextrose (Dextrose 50% 50ML Syringe) 25-50ML OF 50% DW IV FOR... UD PRN IV 04/01/17 19:00 05/01/17 18:59 Glucagon (Glucagon Inj) 1 mg UD PRN SQ 04/01/17 19:00 05/01/17 18:59 Levofloxacin (Consult) 1 ea UD PRN N/A 04/01/17 19:15 05/01/17 19:14 Piperacillin Sod/ Tazobactam Sod (Consult) 1 ea UD PRN N/A 04/01/17 19:15 05/01/17 19:14 Morphine Sulfate (MoRPHine SULFATE INJ) 2 mg Q6H PRN IV 04/01/17 19:15 04/15/17 19:14 04/01/17 21:26 2 MG Fluticasone Propionate (Flonase Nasal [place]) 2 sprays DAILY VLADISLAV 04/02/17 09:00 05/02/17 08:59 Miscellaneous Information (Order Awaiting Action) 1 ea QS N/A 04/02/17 00:00 05/02/17 00:00 Levofloxacin 750 mg/Prmx 150 ml @ 100 mls/hr Q24H IV 04/01/17 20:00 04/08/17 19:59 04/01/17 21:25 100 MLS/HR Piperacillin Sod/ Tazobactam Sod 3.375 gm/Dextrose 115 ml @ 28.75 mls/ hr Q8H IV 04/02/17 06:00 04/08/17 21:59 04/02/17 05:48 28.75 MLS/HR Review of Systems Review of Systems Constitutional: denies chills, denies diaphoresis, denies fever, weakness Eyes: reports: no symptoms ENT: reports: no symptoms reported Cardiovascular: reports: chest pain, chest tightness, denies: chest pressure, palpitations Respiratory: reports: cough, short of breath, denies: stridor, cyanosis Gastrointestinal: abdominal pain, denies constipation, denies diarrhea, nausea , denies vomiting Genitourinary - Female: reports: no symptoms Musculoskeletal: joint pain, joint swelling, denies muscle stiffness, denies neck pain Integumentary: no symptoms reported Neurologic: reports: no symptoms Psychiatric: reports: no symptoms Endocrine: no symptoms Hematologic / Lymphatic: no symptoms Allergic / Immunologic: no symptoms Physical Exam Physical Exam General Appearance: + WD/WN, + other (confused), No distress Ears, Nose, Throat: + normal ENT inspection Neck: No abnormal inspection, No tracheal deviation, No lymphadenophy, No stiffness, No tenderness Respiratory: + rales, + decreased breath sounds, + rhonchi, No accessory muscle use, No stridor, No wheezing Cardiovascular: + tachycardia, No gallop/S3, No diastolic murmur, No gallop/S4 , No bradycardia, No systolic murmur Abdomen: + tenderness (mild diffuse), No abnormal bowel sounds, No pulsatile mass, No rebound, No distension, No hernia, No organomegaly, No guarding Extremities: No deformity, No swelling, No calf tenderness, No inflammation Neurologic/Psychiatric: + disorientation, No motor deficit/weakness, No sensory deficit Skin Characteristics: No abnormal color, No diaphoresis, No pallor, No jaundice , No rash Lymphatic: No abnormal adenopathy Diagnostics Labs Labs Results Past 24 Hours Test 04/01/17 15:50 04/01/17 16:08 04/01/17 16:15 04/01/17 17:32 Range/Units Urine Color DK YELLOW Urine Appearance CLOUDY CLEAR Urine pH 5.0 4.5-7.5 Urine Specific [place] 1.031 1.000-1.030 Urine Protein 3+ NEG Urine Glucose (UA) 3+ NEG Urine Ketones 1+ NEG Urine Occult Blood 2+ NEG Urine Nitrite NEG NEG Urine Bilirubin NEG NEG Urine Urobilinogen NEG NEG Urine Leukocyte Esterase NEG NEG Urine WBC (Auto) 1-5 0-5 /hpf Urine RBC (Auto) 10-30 0-4 /hpf Urine Hyaline Casts (Auto) 5-10 0-5 /lpf Urine Epithelial Cells (Auto) >30 0-5 /lpf Urine Bacteria (Auto) 1+ NEG Urine Renal Epithelial Cells 0-5 /lpf Urine Yeast (Auto) PRESENT NONE PRSENT White Blood Count 17.19 4.8-10.8 K/uL Red Blood Count 5.44 4.2-5.4 M/uL Hemoglobin 17.0 12.0-16.0 g/dL Hematocrit 46.9 37-47 % Mean Corpuscular Volume 86.2 80-100 fL Mean Corpuscular Hemoglobin 31.3 25-34 pg Mean Corpuscular Hemoglobin Concent 36.2 32-36 g/dl Platelet Count 240 130-400 K/uL Mean Platelet Volume 9.6 7.4-10.4 fL Neutrophils (%) (Auto) 87.9 % Lymphocytes (%) (Auto) 5.2 % Monocytes (%) (Auto) 6.5 % Eosinophils (%) (Auto) 0.0 % Basophils (%) (Auto) 0.1 % Neutrophils # (Auto) 15.10 1.4-6.5 K/uL Lymphocytes # (Auto) 0.90 1.2-3.4 K/uL Monocytes # (Auto) 1.12 0.11-0.59 K/uL Eosinophils # (Auto) 0.00 0-0.5 K/uL Basophils # (Auto) 0.01 0-0.2 K/uL RDW Standard Deviation 43.1 36.4-46.3 fL RDW Coefficient of Variation 13.8 11.5-14.5 % Immature Granulocyte % (Auto) 0.3 % Immature Granulocyte # (Auto) 0.06 0.00-0.02 K/uL Prothrombin Time 11.3 9.0-12.0 SECONDS Prothromb Time International Ratio 1.1 0.9-1.1 Activated Partial Thromboplast Time 30.8 21.0-31.0 SECONDS Partial Thromboplastin Ratio 1.2 Sodium Level 131 136-145 mmol/L Potassium Level 3.1 3.5-5.1 mmol/L Chloride Level 95 98-107 mmol/L Carbon Dioxide Level 26 21-32 mmol/L Anion Gap 10.0 19.0 16-25 mmol/L Blood Urea Nitrogen 18 7-18 mg/dl Creatinine 0.82 0.60-1.20 mg/dl Est Creatinine Clear Calc Drug Dose 46.1 ml/min Estimated GFR () 75.1 Estimated GFR (Non- 64.8 BUN/Creatinine Ratio 22.3 10-20 Random Glucose 218 70-99 mg/dl Calcium Level 10.0 8.5-10.1 mg/dl Total Bilirubin 1.1 0.2-1 mg/dl Direct Bilirubin 0.5 0-0.2 mg/dl Aspartate Amino Transf (AST/SGOT) 94 15-37 U/L Alanine Aminotransferase (ALT/SGPT) 104 12-78 U/L Alkaline Phosphatase 125 45-117 U/L Ammonia 10.1 11-32 umol/L Troponin I < 0.015 0-0.045 ng/ml Total Protein 8.0 6.4-8.2 gm/dl Albumin 3.3 3.4-5.0 gm/dl Procalcitonin 0.18 0-0.5 ng/ml Bedside Hemoglobin 16.3 12.0-16.0 g/dl Bedside Hematocrit 48 37-47 % Bedside Sodium 135 135-144 mEq/L Bedside Potassium 3.2 3.3-5.0 mEq/L Bedside Chloride 94 101-112 mEq/L Bedside Total CO2 26 24-31 mEq/l Bedside Blood Urea Nitrogen 18 7-18 mg/dl Bedside Creatinine 0.6 0.6-1.3 mg/dl Bedside Glucose (other) 226 70-99 mg/dl Bedside Ionized Calcium (Kaden) 1.13 1.12-1.32 mmol/l Bedside Lactic Acid Venous 3.49 0.90-1.70 mmol/L Test 04/01/17 20:05 04/01/17 20:06 04/01/17 20:17 04/01/17 20:30 Range/Units Lactic Acid Level 2.6 0.4-2.0 mmol/L Influenza Type A (RT-PCR) Neg for Influ A NEG Influenza Type B (RT-PCR) Neg for Influ B NEG Troponin I < 0.015 0-0.045 ng/ml Lipase 90 73-393 U/L Arterial Blood pH 7.49 7.35-7.45 Arterial Blood Partial Pressure CO2 35 35-46 mmHg Arterial Blood Partial Pressure O2 80 80-95 mm/Hg Arterial Blood HCO3 26 19-24 mmol/L Arterial Blood Oxygen Saturation 96.6 90-95 % Arterial Blood Base Excess 2.9 -9-1.8 mEq/L Arterial Blood Gas Delivery 5 Jarrod Test POS POS Test 04/01/17 21:19 04/02/17 06:23 04/02/17 06:53 04/02/17 06:58 Range/Units Bedside Glucose 229 153 70-90 mg/dl Microbiology Results 04/01/17 Blood Culture, Received Pending 04/01/17 Blood Culture, Received Pending 04/01/17 MRSA DNA Surveillance Screen - Final, Complete Specimen Negative for MRSA by DNA Probe 04/02/17 Urine Culture, Received Pending Diagnostic Radiology Diagnostic Radiology CT SCAN OF THE ABDOMEN AND PELVIS WITHOUT IV CONTRAST CLINICAL HISTORY: Generalized abdominal pain. COMPARISON STUDY: Abdominal CT dated 04/05/2016. TECHNIQUE: CT scan of the abdomen and pelvis is performed from the lung bases to the proximal femora. Images are reviewed in the axial, sagittal, and coronal planes. IV contrast was not administered for this examination as per the referring clinician. Note that the examination is performed in significantly suboptimal fashion without oral and IV contrast. A dose lowering technique was utilized adhering to the principles of ALARA. CT DOSE: 355.36 mGy.cm FINDINGS: Lung bases: The heart is normal in size and without pericardial effusion. The coronary arteries are densely calcified. Patchy airspace opacities are present dependently at both lung bases. Fluid/secretions are seen within the lower lobe airways. Trace pleural effusions are identified. Calcified mediastinal lymph nodes are partially imaged. A calcified granuloma is noted in the right lower lobe. Liver: The unenhanced liver is normal in size, contour, and attenuation. There is no intrahepatic biliary ductal dilatation. Gallbladder: The gallbladder is markedly distended. There is gallbladder wall thickening, with intraluminal gas and surrounding inflammatory stranding. Spleen: Normal in size and attenuation. Pancreas: The unenhanced pancreas is atrophic and grossly unremarkable. Adrenal glands: Unremarkable. Kidneys: The unenhanced kidneys are atrophic and without hydronephrosis. Renal calculi cannot be assessed for due to the presence of excreted contrast within the renal collecting system and ureters. A 3 cm cyst is present in the lower pole of the left kidney. Additional subcentimeter cortical hypodensities also likely represent cysts but are too small for definitive characterization. Abdominal vasculature: The abdominal aorta is normal in course and caliber noting advanced atherosclerotic calcification. Bowel: There is moderate sigmoid diverticulosis without CT evidence of acute diverticulitis. No bowel obstruction is seen. The appendix is not identified. Peritoneum: There is no intraperitoneal free air or abdominal ascites. Lymphadenopathy: None. Pelvic viscera: The bladder is filled with excreted contrast and grossly unremarkable. Calcified uterine fibroids are identified. No adnexal lesion is seen. Skeletal structures: The skeletal structures are osteopenic. There is moderate lumbosacral spondylosis and scoliosis. There is a moderate compression deformity of T10. A mild superior endplate compression deformities seen involving T8. 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 No lytic or blastic lesions are seen. IMPRESSION: 1. Significant suboptimal examination without oral and IV contrast. 2. Findings are consistent with acute cholecystitis. Surgical consultation is advised. 3. Moderate sigmoid diverticulosis without CT evidence of acute diverticulitis. 4. Patchy airspace opacities are seen dependently at both lung bases. There are trace pleural effusions, as well as fluid/secretions within the lower lobe airways. This could represent atelectasis versus pneumonia/aspiration pneumonitis. Clinical correlation will be required. 5. Additional findings as above. Impression Assessment and Plan Assessment and Plan Acute cholecystitis/aspiration pneumonia -difficult history -agree abx/IVF -will order HIDA; if obstructed GB then best course of action in this septic patient is percutaneous cholecystostomy tube, not a good surgical candidate with likely difficult GB
[2017-04-02 07:39] LABS: ESTIMATED AVERAGE GLUCOSE 117 mg/dl; HA1C FLAG Normal (Normal)
[2017-04-02 07:40] LABS: BUN/CREATININE RATIO 28.3 (10-20); CALCIUM 9.1 mg/dl (8.5-10.1); CREATININE 0.75 mg/dl (0.60-1.20); MAGNESIUM 1.9 mg/dl (1.8-2.4); POTASSIUM 3.7 mmol/L (3.5-5.1)
[2017-04-02] MEDS: RESTASIS~ORDER AWAITING ACTION SCH ×2 (07:49→16:00)
[2017-04-02] MEDS ORDERED: CITALOPRAM 20 MG TAB PO SCH (09:00)
[2017-04-02] MEDS ORDERED: PANTOprazole SOD 40 MG TAB PO SCH (09:00)
[2017-04-02] MEDS ORDERED: AMLODIPINE BESYLATE 5 MG TAB PO SCH (09:00)
[2017-04-02] MEDS ORDERED: CLOPIDOGREL BISULFATE 75 MG TAB PO SCH (09:00)
[2017-04-02] MEDS ORDERED: FLUTICASONE PROPIONATE NA SPR 16 GM BTL NAE SCH (09:00)
[2017-04-02] MEDS ORDERED: PHENOBARBITAL 32.4 MG TAB PO SCH (09:00)
[2017-04-02] MEDS ORDERED: MECLIZINE HCL 25 MG TAB PO SCH (09:00)
[2017-04-02] MEDS ORDERED: LORAZEPAM 2 MG/ML 1 ML VIAL IV PRN (10:00)
--- NOTE | 2017-04-02 10:12 | Progress Note ---
Internal Med Progress Note Date of Service: Apr 02, 2017. Provider Documentation: SUBJECTIVE: Seen and examined at bedside Oriented to person, time Complains of abdominal pain Less SOB Denies cough, nausea, diarrhea History not reliable secondary to dementia Planned for HIDA scan today OBJECTIVE: Vital Signs-as noted below General Appearance: WD/WN, no distress Head: normocephalic, atraumatic Eyes: normal inspection, PERRL, EOMI, sclerae normal ENT: normal ENT inspection, hearing grossly normal Neck: supple, trachea midline Respiratory/Chest: no accessory muscle use, decreased breath sounds, B/L rhonchi, mild chest tenderness at surgical site Cardiovascular: regular rate, rhythm, no edema, no murmur, + tachycardia Abdomen/GI: normal bowel sounds, soft, + tenderness predominantly RUQ Back: normal inspection Extremities/Musculoskelatal: normal inspection, no pedal edema Neurologic/Psych: Grossly no focal deficits Skin: normal color, warm/dry Lab data as noted below. ASSESSMENT & PLAN: Sepsis: secondary to HCAP, acute cholecystitis Acute Hypoxic Respiratory failure: HCAP: Aspiration Pneumonia Presented with Hypoxia, 87 % on RA CTA :No pulmonary emboli. B/L lower lobe opacities. Possible aspiration Continue IV Zosyn, Levaquin IV fluids as clinically dry Procalcitonin: normal lactate normalized Speech and swallow eval NPO for now Duonebs, Oxygen support Aspiration precautions Pulmonology consulted Blood/Urine culture: pending flu, MRSA screen: negative Acute Cholecystitis: HIDA scan:Nonvisualization of the gallbladder. findings suggestive of cystic duct obstruction and acute cholecystitis Surgery consulted check stool for c.diff if diarrhea reoccurs Appreciate Surgery Input Needs percutaneous cholecystostomy tube as patient is not a good surgical candidate Planned to be transferred to [facility] for further management Hypertensive Urgency: Amlodipine on hold as NPO Labetelol PRN Denies headache CT head: no acute process BP better Hypokalemia/Dehydration: Secondary to GI loses Replace and monitor Prediabetes: No h/o DM A1C: 5.7 ISS H/O MS: Zanaflex PRN on hold as NPO Follows with as outpatient PVD: plavix on hold as NPO CKD III: Cr at baseline H/O Breast cancer s/p mastectomy complains of chest pain at surgical site Troponin X 2: negative ECHO pending Dementia: Mental status seemed to be at baseline CT head noted H/O Seizure disorder: Phenobarbital on hold Ativan PRN siezures H/O multiple falls PT/OT DVT Px: Heparin SQ Code Status: DNI/DNR on my discussion with patient's Niece (POA) and old records Disposition: Plan to transferred to [facility] for further management (Possible percutaneous cholecystostomy tube placement) Vital Signs: Date Time Temp Pulse Resp B/P (MAP) Pulse Ox O2 Delivery O2 Flow Rate FiO2 04/02/17 13:57 103 179/103 (128) 04/02/17 12:40 37.4 101 20 203/110 (141) 94 Nasal Cannula 2.0 04/02/17 08:45 101 166/116 (133) 04/02/17 08:00 Nasal Cannula 2.0 04/02/17 07:55 36.6 109 18 178/101 (126) 97 Room Air 04/02/17 07:26 102 20 95 Mask 3.0 04/02/17 05:13 105 175/114 (134) 04/02/17 04:37 36.7 115 21 179/99 (125) 95 Oxymask 3.0 04/02/17 04:00 Oxymask 3.0 04/01/17 23:59 Oxymask 4.0 04/01/17 23:08 36.6 124 22 156/101 (119) 95 Oxymask 4.0 04/01/17 20:00 94 Oxymask 5.0 04/01/17 20:00 95 169/100 (123) 94 Oxymask 5.0 04/01/17 18:00 37.3 122 20 189/108 92 Nasal Cannula 4.0 04/01/17 18:00 37.3 117 20 189/108 (135) 92 Nasal Cannula 4.0 04/01/17 16:19 126 04/01/17 15:30 36.9 118 26 196/114 87 Room Air 04/01/17 15:30 94 Nasal Cannula 6.0 04/01/17 15:30 93 Nasal Cannula 6.0 Lab Results: Results Past 24 Hours Test 04/01/17 15:50 04/01/17 16:08 04/01/17 16:15 04/01/17 17:32 Range/Units Urine Color DK YELLOW Urine Appearance CLOUDY CLEAR Urine pH 5.0 4.5-7.5 Urine Specific [place] 1.031 1.000-1.030 Urine Protein 3+ NEG Urine Glucose (UA) 3+ NEG Urine Ketones 1+ NEG Urine Occult Blood 2+ NEG Urine Nitrite NEG NEG Urine Bilirubin NEG NEG Urine Urobilinogen NEG NEG Urine Leukocyte Esterase NEG NEG Urine WBC (Auto) 1-5 0-5 /hpf Urine RBC (Auto) 10-30 0-4 /hpf Urine Hyaline Casts (Auto) 5-10 0-5 /lpf Urine Epithelial Cells (Auto) >30 0-5 /lpf Urine Bacteria (Auto) 1+ NEG Urine Renal Epithelial Cells 0-5 /lpf Urine Yeast (Auto) PRESENT NONE PRSENT White Blood Count 17.19 4.8-10.8 K/uL Red Blood Count 5.44 4.2-5.4 M/uL Hemoglobin 17.0 12.0-16.0 g/dL Hematocrit 46.9 37-47 % Mean Corpuscular Volume 86.2 80-100 fL Mean Corpuscular Hemoglobin 31.3 25-34 pg Mean Corpuscular Hemoglobin Concent 36.2 32-36 g/dl Platelet Count 240 130-400 K/uL Mean Platelet Volume 9.6 7.4-10.4 fL Neutrophils (%) (Auto) 87.9 % Lymphocytes (%) (Auto) 5.2 % Monocytes (%) (Auto) 6.5 % Eosinophils (%) (Auto) 0.0 % Basophils (%) (Auto) 0.1 % Neutrophils # (Auto) 15.10 1.4-6.5 K/uL Lymphocytes # (Auto) 0.90 1.2-3.4 K/uL Monocytes # (Auto) 1.12 0.11-0.59 K/uL Eosinophils # (Auto) 0.00 0-0.5 K/uL Basophils # (Auto) 0.01 0-0.2 K/uL RDW Standard Deviation 43.1 36.4-46.3 fL RDW Coefficient of Variation 13.8 11.5-14.5 % Immature Granulocyte % (Auto) 0.3 % Immature Granulocyte # (Auto) 0.06 0.00-0.02 K/uL Prothrombin Time 11.3 9.0-12.0 SECONDS Prothromb Time International Ratio 1.1 0.9-1.1 Activated Partial Thromboplast Time 30.8 21.0-31.0 SECONDS Partial Thromboplastin Ratio 1.2 Sodium Level 131 136-145 mmol/L Potassium Level 3.1 3.5-5.1 mmol/L Chloride Level 95 98-107 mmol/L Carbon Dioxide Level 26 21-32 mmol/L Anion Gap 10.0 19.0 16-25 mmol/L Blood Urea Nitrogen 18 7-18 mg/dl Creatinine 0.82 0.60-1.20 mg/dl Est Creatinine Clear Calc Drug Dose 46.1 ml/min Estimated GFR () 75.1 Estimated GFR (Non- 64.8 BUN/Creatinine Ratio 22.3 10-20 Random Glucose 218 70-99 mg/dl Calcium Level 10.0 8.5-10.1 mg/dl Total Bilirubin 1.1 0.2-1 mg/dl Direct Bilirubin 0.5 0-0.2 mg/dl Aspartate Amino Transf (AST/SGOT) 94 15-37 U/L Alanine Aminotransferase (ALT/SGPT) 104 12-78 U/L Alkaline Phosphatase 125 45-117 U/L Ammonia 10.1 11-32 umol/L Troponin I < 0.015 0-0.045 ng/ml Total Protein 8.0 6.4-8.2 gm/dl Albumin 3.3 3.4-5.0 gm/dl Procalcitonin 0.18 0-0.5 ng/ml Bedside Hemoglobin 16.3 12.0-16.0 g/dl Bedside Hematocrit 48 37-47 % Bedside Sodium 135 135-144 mEq/L Bedside Potassium 3.2 3.3-5.0 mEq/L Bedside Chloride 94 101-112 mEq/L Bedside Total CO2 26 24-31 mEq/l Bedside Blood Urea Nitrogen 18 7-18 mg/dl Bedside Creatinine 0.6 0.6-1.3 mg/dl Bedside Glucose (other) 226 70-99 mg/dl Bedside Ionized Calcium (Kaden) 1.13 1.12-1.32 mmol/l Bedside Lactic Acid Venous 3.49 0.90-1.70 mmol/L Test 04/01/17 20:05 04/01/17 20:06 04/01/17 20:17 04/01/17 20:30 Range/Units Lactic Acid Level 2.6 0.4-2.0 mmol/L Influenza Type A (RT-PCR) Neg for Influ A NEG Influenza Type B (RT-PCR) Neg for Influ B NEG Troponin I < 0.015 0-0.045 ng/ml Lipase 90 73-393 U/L Arterial Blood pH 7.49 7.35-7.45 Arterial Blood Partial Pressure CO2 35 35-46 mmHg Arterial Blood Partial Pressure O2 80 80-95 mm/Hg Arterial Blood HCO3 26 19-24 mmol/L Arterial Blood Oxygen Saturation 96.6 90-95 % Arterial Blood Base Excess 2.9 -9-1.8 mEq/L Arterial Blood Gas Delivery 5 Jarrod Test POS POS Test 04/01/17 21:19 04/02/17 06:23 04/02/17 06:53 04/02/17 06:58 Range/Units Bedside Glucose 229 153 70-90 mg/dl White Blood Count 20.10 4.8-10.8 K/uL Red Blood Count 4.95 4.2-5.4 M/uL Hemoglobin 15.0 12.0-16.0 g/dL Hematocrit 43.6 37-47 % Mean Corpuscular Volume 88.1 80-100 fL Mean Corpuscular Hemoglobin 30.3 25-34 pg Mean Corpuscular Hemoglobin Concent 34.4 32-36 g/dl Platelet Count 243 130-400 K/uL Mean Platelet Volume 10.0 7.4-10.4 fL Neutrophils (%) (Auto) 88.8 % Lymphocytes (%) (Auto) 4.6 % Monocytes (%) (Auto) 6.3 % Eosinophils (%) (Auto) 0.0 % Basophils (%) (Auto) 0.0 % Neutrophils # (Auto) 17.83 1.4-6.5 K/uL Lymphocytes # (Auto) 0.92 1.2-3.4 K/uL Monocytes # (Auto) 1.27 0.11-0.59 K/uL Eosinophils # (Auto) 0.00 0-0.5 K/uL Basophils # (Auto) 0.01 0-0.2 K/uL RDW Standard Deviation 44.9 36.4-46.3 fL RDW Coefficient of Variation 13.9 11.5-14.5 % Immature Granulocyte % (Auto) 0.3 % Immature Granulocyte # (Auto) 0.07 0.00-0.02 K/uL Sodium Level 133 136-145 mmol/L Potassium Level 3.7 3.5-5.1 mmol/L Chloride Level 100 98-107 mmol/L Carbon Dioxide Level 24 21-32 mmol/L Anion Gap 9.0 3-11 mmol/L Blood Urea Nitrogen 21 7-18 mg/dl Creatinine 0.75 0.60-1.20 mg/dl Est Creatinine Clear Calc Drug Dose 50.4 ml/min Estimated GFR () 83.7 Estimated GFR (Non- 72.2 BUN/Creatinine Ratio 28.3 10-20 Random Glucose 166 70-99 mg/dl Estimated Average Glucose 117 mg/dl Hemoglobin A1c 5.7 4.5-5.6 % Calcium Level 9.1 8.5-10.1 mg/dl Magnesium Level 1.9 1.8-2.4 mg/dl Total Bilirubin 0.7 0.2-1 mg/dl Direct Bilirubin 0.3 0-0.2 mg/dl Aspartate Amino Transf (AST/SGOT) 50 15-37 U/L Alanine Aminotransferase (ALT/SGPT) 78 12-78 U/L Alkaline Phosphatase 108 45-117 U/L Total Protein 7.2 6.4-8.2 gm/dl Albumin 2.6 3.4-5.0 gm/dl Lactic Acid Level 2.0 0.4-2.0 mmol/L Test 04/02/17 12:30 Range/Units Bedside Glucose 153 70-90 mg/dl Microbiology Results 04/01/17 Blood Culture, Received Pending 04/01/17 Blood Culture, Received Pending 04/01/17 MRSA DNA Surveillance Screen - Final, Complete Specimen Negative for MRSA by DNA Probe 04/02/17 Urine Culture, Received Pending
--- NOTE | 2017-04-02 11:14 | Pulmonary Consultation ---
History General Date of Service: Apr 02, 2017. Stated Complaint: Pneumonia HPI The patient is a 86 year old female who presents to [facility] with complaints of Pneumonia. The patient's primary care provider is No Doctor, Assigned. Mrs. 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 Patient also noted to have subjective fever, sore throat, nonproductive cough and left-sided pleuritic chest pain. Blood pressure noted to be elevated and she was sent to the ER for further evaluation. In the ER patient observed to have mild respiratory distress and found to be hypoxic in the ER to 87% on room air. She was placed on 6 L nasal cannula with improvement of the pulse oximetry to 94%. Temperature 36.9, blood pressure was 196/144, respiratory rate 26 and pulse 118. Chest chest showed bilateral opacifications consistent with pneumonia. CT of abdomen and pelvis showed acute cholecystitis. Laboratory data on admission showed a white blood cell count of 17,000, hemoglobin of 17 and platelet count of 240. White blood cell count this morning is 20,000. Sodium was 131, potassium 3.1, chloride 95, BUN 18 and creatinine 0.8 and random glucose 218. Total bili was 1.1, direct bili 0.5, AST 94, ALT 104, and alkaline phosphatase 125. Troponin was less than 0.015. Pro-calcitonin 0.18. Lactic acid 3.49, down trending to 2.0 this morning. ABG 7.49/35/80/26/96% on 5 L nasal cannula. Influenza A and B PCR is negative. Blood cultures pending. Urine cultures pending. She was admitted for hypertensive urgency, acute hypoxemia secondary to aspiration pneumonia and for acute cholecystitis. She is currently on Zosyn 3.375 g, Levaquin 750 mg every 24 hours and albuterol/ ipratropium every 6 hours. For her blood pressure she was given labetalol 10 mg every 6 hours, nitroglycerin. Overnight she was given enalaprilat 2.5 mg 1 dose. At the time of my evaluation, patient denies any shortness of breath, cough or chest pain. She still complains of right upper quadrant pain. She denies any further episodes of vomiting or diarrhea. Vital signs this morning show temperature 36.6, pulse 109, respiratory rate 18, blood pressure 178/101 saturating 97% on room air. Historian: patient, other (EMR) Onset: other (several days prior to admission) Severity: moderate Complaint Status: persistent Quality of Pain: dull Review of Systems Constitutional: reports: as stated in HPI Eyes: reports: as stated in HPI ENT: reports: as stated in HPI Cardiovascular: reports: as stated in HPI Respiratory: reports: as stated in HPI Gastrointestinal: reports: as stated in HPI Genitourinary - Female: reports: as stated in HPI Musculoskeletal: reports: as stated in HPI Integumentary: reports: as stated in HPI Neurologic: reports: as stated in HPI Psychiatric: reports: as stated in HPI Endocrine: as stated in HPI Hematologic / Lymphatic: as stated in HPI Allergic / Immunologic: as stated in HPI All Other Symptoms All Other Systems: Reviewed and Negative Past Medical History Past Medical History: Paget's disease of the breast Chronic kidney disease stage III, CVA, hypertension, multiple sclerosis Osteoarthritis, PVD, seizure disorder Past Surgical History: Left mastectomy Ankle surgery Family History Unable to obtain Social History She is a lifetime nonsmoker, and lives in assisted living. She is a retired clerk secretary. Hx Tobacco Use In Past Year?: No Smoking Status: Never Smoker Marital status: Housing status: assisted living Occupational Status: retired Immunizations History of Influenza Vaccine: Yes Influenza Vaccine Date: Jan 26, 2015 History of Tetanus Vaccine?: Yes Tetanus Immunization Date: Jun 26, 2011 History of Pneumococcal: Yes Pneumococcal Date: Jan 26, 2015 History of MDRO History of MDRO: No Allergies Coded Allergies: Adhesives (Verified Allergy, Mild, RASH AND BLISTERING, 02/08/16) Hydantoins (Verified Allergy, Unknown, 02/08/16) Mesalamine (Verified Allergy, Unknown, 02/08/16) Phenytoin (Verified Allergy, Unknown, 02/08/16) Current Medications Reported Home Medications Medications Dose Route/Sig Max Daily Dose Days Date Category Flonase Allergy Relief (Fluticasone Propionate (Nasal)) 50 Mcg/Act Spr 2 Sprays VLADISLAV DAILY 04/01/17 Reported Restasis (Cyclosporine (Ophth)) 0.05 % Emu 1 Drop OPB Q12 04/01/17 Reported Percocet 5MG/325MG (Oxycodone/Acetaminophen) Tab 2 Tabs PO Q4H PRN 04/01/17 Reported Percocet 5MG/325MG (Oxycodone/Acetaminophen) Tab 1 Tablet PO Q4H PRN 04/01/17 Reported Chronulac (Lactulose) 10 Gm/15 Ml Syrp 45 Ml PO BID PRN 04/01/17 Reported Zanaflex (Tizanidine Hcl) 4 Mg Tab 4 Mg PO DAILY 04/01/17 Reported Oxycodone HCl ER (Oxycodone HCl) 15 Mg Tab 15 Mg PO Q12 04/01/17 Reported Senna S (Sennosides-Docusate Sodium) 1 Tab Tab 2 Tabs PO BID 04/01/17 Reported Prilosec (Omeprazole) 40 Mg Cap 40 Mg PO DAILY 04/01/17 Reported [Protein Liquid] 30 Ml PO BID 04/05/16 Reported Theragran-M (Multiple Vitamins W/ Minerals) 1 Tab Tab 1 Tab PO QAM 04/05/16 Reported Meclizine Hcl 25 Mg Tab 25 Mg PO QAM 04/05/16 Reported Celexa (Citalopram Hydrobromide) 20 Mg Tab 20 Mg PO DAILY 04/05/16 Reported Myrbetriq Er (Mirabegron) 50 Mg Tab 50 Mg PO DAILY 02/08/16 Reported Glucosamine Chondroitin (Sztivbpvdab-Bqepmhrsmsy-Cfy C-) 1 Tab Tab 1 Tab PO BID 03/15/15 Reported Norvasc (Amlodipine Besylate) 5 Mg Tab 5 Mg PO DAILY 03/22/14 Reported Plavix (Clopidogrel Bisulfate) 75 Mg Tab 75 Mg PO DAILY 06/19/12 Reported Caltrate 600 Plus (Calcium Carbonate-Vitamin D W/) 1 Tab Tab 2 Tabs PO DAILY 03/03/12 Reported [place]-3 (Fish Oil) 1 Ea Cap 1,200 Mg PO DAILY 03/04/11 Reported Physical Physical Exam Vital Signs: Date Time Temp Pulse Resp B/P (MAP) Pulse Ox O2 Delivery O2 Flow Rate FiO2 04/02/17 08:45 101 166/116 (133) 04/02/17 07:55 36.6 109 18 178/101 (126) 97 Room Air 04/02/17 07:26 102 20 95 Mask 3.0 04/02/17 05:13 105 175/114 (134) 04/02/17 04:37 36.7 115 21 179/99 (125) 95 Oxymask 3.0 04/02/17 04:00 Oxymask 3.0 04/01/17 23:59 Oxymask 4.0 04/01/17 23:08 36.6 124 22 156/101 (119) 95 Oxymask 4.0 04/01/17 20:00 94 Oxymask 5.0 04/01/17 20:00 95 169/100 (123) 94 Oxymask 5.0 04/01/17 18:00 37.3 122 20 189/108 92 Nasal Cannula 4.0 04/01/17 18:00 37.3 117 20 189/108 (135) 92 Nasal Cannula 4.0 04/01/17 16:19 126 04/01/17 15:30 36.9 118 26 196/114 87 Room Air 04/01/17 15:30 94 Nasal Cannula 6.0 04/01/17 15:30 93 Nasal Cannula 6.0 General Appearance: WELL-APPEARING, WD/WN, NO APPARENT DISTRESS Head: NORMOCEPHALIC, ATRAUMATIC Eyes: PERRLA, NO DISCHARGE, EOMI, SCLERAE NORMAL ENT: NORMAL THROAT EXAM, NORMAL DENTAL EXAM Neck: NORMAL RANGE OF MOTION, NO TENDERNESS, TRACHEA MIDLINE, NO STRIDOR, SUPPLE Respiratory: chest wall tenderness (left mastectomy), other (good air entry bilaterally crackles at bases) Cardiovasular: REGULAR RATE/RHYTHM, NORMAL S1S2 Abdomen: RUQ TTP Back: NORMAL INSPECTION, NO MIDLINE TENDERNESS, NO CVA TENDERNESS Upper Extremities: NO EDEMA, NO DEFORMITY, NORMAL ROM Lower Extremities: NO EDEMA, NO DEFORMITY, NORMAL ROM Neuro: ALERT (oriented to person), NORMAL MOTOR EXAM, NORMAL SENSATION, NORMAL CEREBELLAR EXAM, NORMAL SPEECH, memory abnormal Psychiatric: NORMAL AFFECT, NO SUICIDAL IDEATION, CONTRACTS FOR SAFETY Diagnostics Labs Results Past 24 Hours Test 04/01/17 15:50 04/01/17 16:08 04/01/17 16:15 04/01/17 17:32 Range/Units Urine Color DK YELLOW Urine Appearance CLOUDY CLEAR Urine pH 5.0 4.5-7.5 Urine Specific [place] 1.031 1.000-1.030 Urine Protein 3+ NEG Urine Glucose (UA) 3+ NEG Urine Ketones 1+ NEG Urine Occult Blood 2+ NEG Urine Nitrite NEG NEG Urine Bilirubin NEG NEG Urine Urobilinogen NEG NEG Urine Leukocyte Esterase NEG NEG Urine WBC (Auto) 1-5 0-5 /hpf Urine RBC (Auto) 10-30 0-4 /hpf Urine Hyaline Casts (Auto) 5-10 0-5 /lpf Urine Epithelial Cells (Auto) >30 0-5 /lpf Urine Bacteria (Auto) 1+ NEG Urine Renal Epithelial Cells 0-5 /lpf Urine Yeast (Auto) PRESENT NONE PRSENT White Blood Count 17.19 4.8-10.8 K/uL Red Blood Count 5.44 4.2-5.4 M/uL Hemoglobin 17.0 12.0-16.0 g/dL Hematocrit 46.9 37-47 % Mean Corpuscular Volume 86.2 80-100 fL Mean Corpuscular Hemoglobin 31.3 25-34 pg Mean Corpuscular Hemoglobin Concent 36.2 32-36 g/dl Platelet Count 240 130-400 K/uL Mean Platelet Volume 9.6 7.4-10.4 fL Neutrophils (%) (Auto) 87.9 % Lymphocytes (%) (Auto) 5.2 % Monocytes (%) (Auto) 6.5 % Eosinophils (%) (Auto) 0.0 % Basophils (%) (Auto) 0.1 % Neutrophils # (Auto) 15.10 1.4-6.5 K/uL Lymphocytes # (Auto) 0.90 1.2-3.4 K/uL Monocytes # (Auto) 1.12 0.11-0.59 K/uL Eosinophils # (Auto) 0.00 0-0.5 K/uL Basophils # (Auto) 0.01 0-0.2 K/uL RDW Standard Deviation 43.1 36.4-46.3 fL RDW Coefficient of Variation 13.8 11.5-14.5 % Immature Granulocyte % (Auto) 0.3 % Immature Granulocyte # (Auto) 0.06 0.00-0.02 K/uL Prothrombin Time 11.3 9.0-12.0 SECONDS Prothromb Time International Ratio 1.1 0.9-1.1 Activated Partial Thromboplast Time 30.8 21.0-31.0 SECONDS Partial Thromboplastin Ratio 1.2 Sodium Level 131 136-145 mmol/L Potassium Level 3.1 3.5-5.1 mmol/L Chloride Level 95 98-107 mmol/L Carbon Dioxide Level 26 21-32 mmol/L Anion Gap 10.0 19.0 16-25 mmol/L Blood Urea Nitrogen 18 7-18 mg/dl Creatinine 0.82 0.60-1.20 mg/dl Est Creatinine Clear Calc Drug Dose 46.1 ml/min Estimated GFR () 75.1 Estimated GFR (Non- 64.8 BUN/Creatinine Ratio 22.3 10-20 Random Glucose 218 70-99 mg/dl Calcium Level 10.0 8.5-10.1 mg/dl Total Bilirubin 1.1 0.2-1 mg/dl Direct Bilirubin 0.5 0-0.2 mg/dl Aspartate Amino Transf (AST/SGOT) 94 15-37 U/L Alanine Aminotransferase (ALT/SGPT) 104 12-78 U/L Alkaline Phosphatase 125 45-117 U/L Ammonia 10.1 11-32 umol/L Troponin I < 0.015 0-0.045 ng/ml Total Protein 8.0 6.4-8.2 gm/dl Albumin 3.3 3.4-5.0 gm/dl Procalcitonin 0.18 0-0.5 ng/ml Bedside Hemoglobin 16.3 12.0-16.0 g/dl Bedside Hematocrit 48 37-47 % Bedside Sodium 135 135-144 mEq/L Bedside Potassium 3.2 3.3-5.0 mEq/L Bedside Chloride 94 101-112 mEq/L Bedside Total CO2 26 24-31 mEq/l Bedside Blood Urea Nitrogen 18 7-18 mg/dl Bedside Creatinine 0.6 0.6-1.3 mg/dl Bedside Glucose (other) 226 70-99 mg/dl Bedside Ionized Calcium (Kaden) 1.13 1.12-1.32 mmol/l Bedside Lactic Acid Venous 3.49 0.90-1.70 mmol/L Test 04/01/17 20:05 04/01/17 20:06 04/01/17 20:17 04/01/17 20:30 Range/Units Lactic Acid Level 2.6 0.4-2.0 mmol/L Influenza Type A (RT-PCR) Neg for Influ A NEG Influenza Type B (RT-PCR) Neg for Influ B NEG Troponin I < 0.015 0-0.045 ng/ml Lipase 90 73-393 U/L Arterial Blood pH 7.49 7.35-7.45 Arterial Blood Partial Pressure CO2 35 35-46 mmHg Arterial Blood Partial Pressure O2 80 80-95 mm/Hg Arterial Blood HCO3 26 19-24 mmol/L Arterial Blood Oxygen Saturation 96.6 90-95 % Arterial Blood Base Excess 2.9 -9-1.8 mEq/L Arterial Blood Gas Delivery 5 Jarrod Test POS POS Test 04/01/17 21:19 04/02/17 06:23 04/02/17 06:53 04/02/17 06:58 Range/Units Bedside Glucose 229 153 70-90 mg/dl White Blood Count 20.10 4.8-10.8 K/uL Red Blood Count 4.95 4.2-5.4 M/uL Hemoglobin 15.0 12.0-16.0 g/dL Hematocrit 43.6 37-47 % Mean Corpuscular Volume 88.1 80-100 fL Mean Corpuscular Hemoglobin 30.3 25-34 pg Mean Corpuscular Hemoglobin Concent 34.4 32-36 g/dl Platelet Count 243 130-400 K/uL Mean Platelet Volume 10.0 7.4-10.4 fL Neutrophils (%) (Auto) 88.8 % Lymphocytes (%) (Auto) 4.6 % Monocytes (%) (Auto) 6.3 % Eosinophils (%) (Auto) 0.0 % Basophils (%) (Auto) 0.0 % Neutrophils # (Auto) 17.83 1.4-6.5 K/uL Lymphocytes # (Auto) 0.92 1.2-3.4 K/uL Monocytes # (Auto) 1.27 0.11-0.59 K/uL Eosinophils # (Auto) 0.00 0-0.5 K/uL Basophils # (Auto) 0.01 0-0.2 K/uL RDW Standard Deviation 44.9 36.4-46.3 fL RDW Coefficient of Variation 13.9 11.5-14.5 % Immature Granulocyte % (Auto) 0.3 % Immature Granulocyte # (Auto) 0.07 0.00-0.02 K/uL Sodium Level 133 136-145 mmol/L Potassium Level 3.7 3.5-5.1 mmol/L Chloride Level 100 98-107 mmol/L Carbon Dioxide Level 24 21-32 mmol/L Anion Gap 9.0 3-11 mmol/L Blood Urea Nitrogen 21 7-18 mg/dl Creatinine 0.75 0.60-1.20 mg/dl Est Creatinine Clear Calc Drug Dose 50.4 ml/min Estimated GFR () 83.7 Estimated GFR (Non- 72.2 BUN/Creatinine Ratio 28.3 10-20 Random Glucose 166 70-99 mg/dl Estimated Average Glucose 117 mg/dl Hemoglobin A1c 5.7 4.5-5.6 % Calcium Level 9.1 8.5-10.1 mg/dl Magnesium Level 1.9 1.8-2.4 mg/dl Total Bilirubin 0.7 0.2-1 mg/dl Direct Bilirubin 0.3 0-0.2 mg/dl Aspartate Amino Transf (AST/SGOT) 50 15-37 U/L Alanine Aminotransferase (ALT/SGPT) 78 12-78 U/L Alkaline Phosphatase 108 45-117 U/L Total Protein 7.2 6.4-8.2 gm/dl Albumin 2.6 3.4-5.0 gm/dl Lactic Acid Level 2.0 0.4-2.0 mmol/L Microbiology Results 04/01/17 Blood Culture, Received Pending 04/01/17 Blood Culture, Received Pending 04/01/17 MRSA DNA Surveillance Screen - Final, Complete Specimen Negative for MRSA by DNA Probe 04/02/17 Urine Culture, Received Pending Diagnostic Radiology CT SCAN OF THE BRAIN WITHOUT IV CONTRAST CLINICAL HISTORY: Change in mental status. COMPARISON STUDY: CT of the brain dated 04/05/2016. TECHNIQUE: Unenhanced axial CT scan of the brain is performed from the vertex to the skull base. FINDINGS: Brain parenchyma: There are age-related involutional changes noting mild to moderate patchy subcortical and periventricular microangiopathic change. There is no hemorrhage, mass effect, or evidence of acute territorial ischemia by CT criteria. Small chronic lacunar infarcts are identified in the caudate heads. Schuler-white matter is preserved. No extra-axial fluid collection is seen. Ventricles, sulci, cisterns: Prominent secondary to involutional change. Intracranial vasculature: There is atherosclerotic calcification of the cavernous carotid and vertebral arteries. Calvarium: Unremarkable. Sinuses and mastoids: The visualized paranasal sinuses are clear. The mastoid air cells are well pneumatized. Orbits: The bony orbits are grossly intact. There are bilateral ocular lens implants. IMPRESSION: Senescent changes as above with no hemorrhage, mass effect, or evidence of acute territorial ischemia by CT criteria. CT ANGIOGRAPHY OF THE CHEST, PULMONARY EMBOLUS PROTOCOL CLINICAL HISTORY: Right-sided chest pain. Shortness of breath. Evaluate for pulmonary embolus. COMPARISON STUDY: Chest CT April 05, 2016. TECHNIQUE: Following IV administration of 88 mL of [id number]-320, helical axial images of the chest were obtained utilizing the pulmonary embolus protocol. Maximal intensity projections and sagittal and coronal reformats were viewed on an independent 3D workstation. IV contrast was administered without complication. A dose lowering technique was utilized adhering to the principles of ALARA. CT DOSE: 838.94 mGy.cm FINDINGS: This exam is significantly compromised by respiratory motion artifact. There is no central pulmonary embolus. The remainder of the pulmonary arteries are suboptimally assessed due to motion artifact. The heart is moderately enlarged. There is no pericardial effusion. There is extensive atherosclerotic plaque of the thoracic aorta without evidence of dissection. No pneumothorax or pleural effusion is present. Extensive secretions are noted within the left lower lobe bronchus extending into the segmental bronchi of the left lower lobe. There are also secretions within the right lower lobe segmental bronchi. There are bilateral lower lobe airspace opacities with mild volume loss. There is mild lingular opacity. A few old thoracic spine compression fractures are present. Upper abdomen is unremarkable. Left breast is surgically absent. There is no thoracic lymphadenopathy. A left lobe hypodense thyroid nodule is noted. IMPRESSION: 1. No central pulmonary emboli. Remainder of pulmonary arteries suboptimally assessed due to respiratory motion. 2. Extensive secretions within the bilateral lower lobe bronchi with mild bilateral lower lobe opacities. The findings raise the possibility of aspiration. 3. Moderate cardiomegaly. 4. Small hiatal hernia. CT SCAN OF THE ABDOMEN AND PELVIS WITHOUT IV CONTRAST CLINICAL HISTORY: Generalized abdominal pain. COMPARISON STUDY: Abdominal CT dated 04/05/2016. TECHNIQUE: CT scan of the abdomen and pelvis is performed from the lung bases to the proximal femora. Images are reviewed in the axial, sagittal, and coronal planes. IV contrast was not administered for this examination as per the referring clinician. Note that the examination is performed in significantly suboptimal fashion without oral and IV contrast. A dose lowering technique was utilized adhering to the principles of ALARA. CT DOSE: 355.36 mGy.cm FINDINGS: Lung bases: The heart is normal in size and without pericardial effusion. The coronary arteries are densely calcified. Patchy airspace opacities are present dependently at both lung bases. Fluid/secretions are seen within the lower lobe airways. Trace pleural effusions are identified. Calcified mediastinal lymph nodes are partially imaged. A calcified granuloma is noted in the right lower lobe. Liver: The unenhanced liver is normal in size, contour, and attenuation. There is no intrahepatic biliary ductal dilatation. Gallbladder: The gallbladder is markedly distended. There is gallbladder wall thickening, with intraluminal gas and surrounding inflammatory stranding. Spleen: Normal in size and attenuation. Pancreas: The unenhanced pancreas is atrophic and grossly unremarkable. Adrenal glands: Unremarkable. Kidneys: The unenhanced kidneys are atrophic and without hydronephrosis. Renal calculi cannot be assessed for due to the presence of excreted contrast within the renal collecting system and ureters. A 3 cm cyst is present in the lower pole of the left kidney. Additional subcentimeter cortical hypodensities also likely represent cysts but are too small for definitive characterization. Abdominal vasculature: The abdominal aorta is normal in course and caliber noting advanced atherosclerotic calcification. Bowel: There is moderate sigmoid diverticulosis without CT evidence of acute diverticulitis. No bowel obstruction is seen. The appendix is not identified. Peritoneum: There is no intraperitoneal free air or abdominal ascites. Lymphadenopathy: None. Pelvic viscera: The bladder is filled with excreted contrast and grossly unremarkable. Calcified uterine fibroids are identified. No adnexal lesion is seen. Skeletal structures: The skeletal structures are osteopenic. There is moderate lumbosacral spondylosis and scoliosis. There is a moderate compression deformity of T10. A mild superior endplate compression deformities seen involving T8. 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 No lytic or blastic lesions are seen. IMPRESSION: 1. Significant suboptimal examination without oral and IV contrast. 2. Findings are consistent with acute cholecystitis. Surgical consultation is advised. 3. Moderate sigmoid diverticulosis without CT evidence of acute diverticulitis. 4. Patchy airspace opacities are seen dependently at both lung bases. There are trace pleural effusions, as well as fluid/secretions within the lower lobe airways. This could represent atelectasis versus pneumonia/aspiration pneumonitis. Clinical correlation will be required. 5. Additional findings as above. EKG EKG 04/01/2017 Ventricular rate 117 bpm Sinus tachycardia , cannot exclude an atrial tachycardia Moderate voltage criteria for LVH, may be normal variant ST & T wave abnormality, consider inferior ischemia ST & T wave abnormality, consider anterior ischemia Abnormal ECG When compared with ECG of 07-APR-2016 07:08, NM interval has decreased Inverted T waves have replaced nonspecific T wave abnormality in Inferior leads T wave inversion more evident in Anterior lead Impression Assessment and Plan Hypoxemia Aspiration pneumonia/pneumonitis Hypertensive urgency Acute cholecystitis Dementia Dehydration Ms. Marks is a 86-year-old female who presented with hypertensive urgency, abdominal pain vomiting and diarrhea secondary to acute cholecystitis and aspiration pneumonia/pneumonitis. Patient found to be tachycardic and tachypneic with elevated white blood cell count, which is most likely combination of sepsis and dehydration. CT scan of the chest negative for pulmonary embolism but shows bilateral opacification consistent with possible pneumonia. At the current time I would like to continue with supplemental oxygen to maintain an SaO2 above 92%. I feel that we should still continue to cover for aspiration pneumonia with broad-spectrum antibiotics. Continue Zosyn and Levaquin. This should also cover any intra-abdominal process going on as well. I agree with speech and swallow as well as aspiration precautions. Continue with nebulizers when necessary for bronchospasm. Patient is clinically dehydrated despite elevated blood pressure consider giving IV fluids. However we should be judicious as patient may have a component of diastolic dysfunction. Obtain TTE as well as troponins and BNP to assess cardiac function. Only other management of cholecystitis to primary team and surgery. I appreciate the consult. Please contact me if you've any further questions or concerns.
--- NOTE | 2017-04-02 12:19 | DIAGNOSTIC IMAGING REPORT ---
NUCLEAR MEDICINE HEPATOBILIARY SCAN CLINICAL HISTORY: acute cholecystitis COMPARISON STUDY: CT scan of the abdomen pelvis dated 04/01/2017 FINDINGS: The patient was injected with 5.5 mCi of technetium 99m Choletec. Imaging out to 1 hour was performed. At 1 hour, the patient was administered 2 mg of intravenous morphine. A 30 minute postmorphine image was acquired. Hepatic excretion appears unremarkable. There is normal passage of activity into small bowel. The gallbladder was not visualized. The findings are indicative of cystic duct obstruction and acute cholecystitis. IMPRESSION: Abnormal study. Nonvisualization of the gallbladder. The findings are indicative of cystic duct obstruction and acute cholecystitis Electronically signed by: Jimbo Bryson M.D. 04/02/2017 12:18 PM Dictated Date/Time: 04/02/2017 12:12 PM
[2017-04-02] MEDS: MoRPHine SULFATE 2 MG/ML CARP IV PRN (12:35)
[2017-04-02] MEDS ORDERED: ENALAPRILAT IV 1.25 MG in DEXTROSE 5% 25ML 25 ML IV SCH (12:45)
[2017-04-02] MEDS ORDERED: PERFLUTREN LIPID MICROSPHERE (DEFINITY) IV ONE (14:37)
--- NOTE | 2017-04-02 14:46 | Discharge Instructions ---
Discharge Instructions Date of Service Apr 02, 2017. Admission Reason for Admission: Pneumonia Discharge Discharge Diagnosis / Problem: Acute Cholecystitis, Aspiration Pneumonia, Hypertensive Urgency, Sepsis Discharge Goals Goal(s): Decrease discomfort, Improve function Activity Recommendations Activity Level: Bedrest . Additional Information Patient informed of condition: Yes Advance Directives: Yes DNR: Yes Level of Care: Other Communicable Disease: No Prognosis: Stable Oxygen at (LPM): 2L NC Henao Catheter: Yes Instructions / Follow-Up Instructions / Follow-Up Follow up with Dr.Joseph Romero at [facility] for further management Current Hospital Diet Patient's current hospital diet: NPO Discharge Diet Recommended Diet: N/A Procedures Procedures Performed: HIDA scan CT ABD CTA chest CT head Pending Studies Studies pending at discharge: yes List of pending studies: Blood/Urine/Sputum culture Physician Orders On Transfer IV Therapy: IV Zosyn, Levaquin, IV fluids Laboratory Results Hemoglobin A1c Test 04/02/17 06:53 Range/Units Estimated Average Glucose 117 mg/dl Hemoglobin A1c 5.7 H 4.5-5.6 % Lipid Panel Test 03/16/17 05:00 Range/Units Triglycerides Level 90 0-150 mg/dl Cholesterol Level 166 0-200 mg/dl HDL Cholesterol 59 mg/dl Cholesterol/HDL Ratio 2.8 LDL Cholesterol, Calculated 89 mg/dl Medical Emergencies . Who to Call and When: Medical Emergencies: If at any time you feel your situation is an emergency, please call 911 immediately. . Non-Emergent Contact Non-Emergency issues call your: Primary Care Provider, Surgeon Call Non-Emergent contact if: you have a fever, your pain is not controlled, your pain is worsening, your pain is unusual for you, your pain is concerning you, you have any medication questions Seek immediate medical attention if your symptoms reoccur or worsen . . "Provider Documentation" section prepared by Robinson Lemos. . Core Measure Problem Core Measures: None
--- NOTE | 2017-04-02 14:49 | Surgery Progress Note ---
Surgery Progress Note Date of Service Apr 02, 2017. Objective Vital Signs: Date Time Temp Pulse Resp B/P (MAP) Pulse Ox O2 Delivery O2 Flow Rate FiO2 04/02/17 14:44 96 20 95 Nasal Cannula 1.0 04/02/17 13:57 103 179/103 (128) 04/02/17 12:40 37.4 101 20 203/110 (141) 94 Nasal Cannula 2.0 04/02/17 08:45 101 166/116 (133) 04/02/17 08:00 Nasal Cannula 2.0 04/02/17 07:55 36.6 109 18 178/101 (126) 97 Room Air 04/02/17 07:26 102 20 95 Mask 3.0 04/02/17 05:13 105 175/114 (134) 04/02/17 04:37 36.7 115 21 179/99 (125) 95 Oxymask 3.0 04/02/17 04:00 Oxymask 3.0 04/01/17 23:59 Oxymask 4.0 04/01/17 23:08 36.6 124 22 156/101 (119) 95 Oxymask 4.0 04/01/17 20:00 94 Oxymask 5.0 04/01/17 20:00 95 169/100 (123) 94 Oxymask 5.0 04/01/17 18:00 37.3 122 20 189/108 92 Nasal Cannula 4.0 04/01/17 18:00 37.3 117 20 189/108 (135) 92 Nasal Cannula 4.0 04/01/17 16:19 126 04/01/17 15:30 36.9 118 26 196/114 87 Room Air 04/01/17 15:30 94 Nasal Cannula 6.0 04/01/17 15:30 93 Nasal Cannula 6.0 Laboratory Results: Results Past 24 Hours Test 04/01/17 15:50 04/01/17 16:08 04/01/17 16:15 04/01/17 17:32 Range/Units Urine Color DK YELLOW Urine Appearance CLOUDY CLEAR Urine pH 5.0 4.5-7.5 Urine Specific [place] 1.031 1.000-1.030 Urine Protein 3+ NEG Urine Glucose (UA) 3+ NEG Urine Ketones 1+ NEG Urine Occult Blood 2+ NEG Urine Nitrite NEG NEG Urine Bilirubin NEG NEG Urine Urobilinogen NEG NEG Urine Leukocyte Esterase NEG NEG Urine WBC (Auto) 1-5 0-5 /hpf Urine RBC (Auto) 10-30 0-4 /hpf Urine Hyaline Casts (Auto) 5-10 0-5 /lpf Urine Epithelial Cells (Auto) >30 0-5 /lpf Urine Bacteria (Auto) 1+ NEG Urine Renal Epithelial Cells 0-5 /lpf Urine Yeast (Auto) PRESENT NONE PRSENT White Blood Count 17.19 4.8-10.8 K/uL Red Blood Count 5.44 4.2-5.4 M/uL Hemoglobin 17.0 12.0-16.0 g/dL Hematocrit 46.9 37-47 % Mean Corpuscular Volume 86.2 80-100 fL Mean Corpuscular Hemoglobin 31.3 25-34 pg Mean Corpuscular Hemoglobin Concent 36.2 32-36 g/dl Platelet Count 240 130-400 K/uL Mean Platelet Volume 9.6 7.4-10.4 fL Neutrophils (%) (Auto) 87.9 % Lymphocytes (%) (Auto) 5.2 % Monocytes (%) (Auto) 6.5 % Eosinophils (%) (Auto) 0.0 % Basophils (%) (Auto) 0.1 % Neutrophils # (Auto) 15.10 1.4-6.5 K/uL Lymphocytes # (Auto) 0.90 1.2-3.4 K/uL Monocytes # (Auto) 1.12 0.11-0.59 K/uL Eosinophils # (Auto) 0.00 0-0.5 K/uL Basophils # (Auto) 0.01 0-0.2 K/uL RDW Standard Deviation 43.1 36.4-46.3 fL RDW Coefficient of Variation 13.8 11.5-14.5 % Immature Granulocyte % (Auto) 0.3 % Immature Granulocyte # (Auto) 0.06 0.00-0.02 K/uL Prothrombin Time 11.3 9.0-12.0 SECONDS Prothromb Time International Ratio 1.1 0.9-1.1 Activated Partial Thromboplast Time 30.8 21.0-31.0 SECONDS Partial Thromboplastin Ratio 1.2 Sodium Level 131 136-145 mmol/L Potassium Level 3.1 3.5-5.1 mmol/L Chloride Level 95 98-107 mmol/L Carbon Dioxide Level 26 21-32 mmol/L Anion Gap 10.0 19.0 16-25 mmol/L Blood Urea Nitrogen 18 7-18 mg/dl Creatinine 0.82 0.60-1.20 mg/dl Est Creatinine Clear Calc Drug Dose 46.1 ml/min Estimated GFR () 75.1 Estimated GFR (Non- 64.8 BUN/Creatinine Ratio 22.3 10-20 Random Glucose 218 70-99 mg/dl Calcium Level 10.0 8.5-10.1 mg/dl Total Bilirubin 1.1 0.2-1 mg/dl Direct Bilirubin 0.5 0-0.2 mg/dl Aspartate Amino Transf (AST/SGOT) 94 15-37 U/L Alanine Aminotransferase (ALT/SGPT) 104 12-78 U/L Alkaline Phosphatase 125 45-117 U/L Ammonia 10.1 11-32 umol/L Troponin I < 0.015 0-0.045 ng/ml Total Protein 8.0 6.4-8.2 gm/dl Albumin 3.3 3.4-5.0 gm/dl Procalcitonin 0.18 0-0.5 ng/ml Bedside Hemoglobin 16.3 12.0-16.0 g/dl Bedside Hematocrit 48 37-47 % Bedside Sodium 135 135-144 mEq/L Bedside Potassium 3.2 3.3-5.0 mEq/L Bedside Chloride 94 101-112 mEq/L Bedside Total CO2 26 24-31 mEq/l Bedside Blood Urea Nitrogen 18 7-18 mg/dl Bedside Creatinine 0.6 0.6-1.3 mg/dl Bedside Glucose (other) 226 70-99 mg/dl Bedside Ionized Calcium (Kaden) 1.13 1.12-1.32 mmol/l Bedside Lactic Acid Venous 3.49 0.90-1.70 mmol/L Test 04/01/17 20:05 04/01/17 20:06 04/01/17 20:17 04/01/17 20:30 Range/Units Lactic Acid Level 2.6 0.4-2.0 mmol/L Influenza Type A (RT-PCR) Neg for Influ A NEG Influenza Type B (RT-PCR) Neg for Influ B NEG Troponin I < 0.015 0-0.045 ng/ml Lipase 90 73-393 U/L Arterial Blood pH 7.49 7.35-7.45 Arterial Blood Partial Pressure CO2 35 35-46 mmHg Arterial Blood Partial Pressure O2 80 80-95 mm/Hg Arterial Blood HCO3 26 19-24 mmol/L Arterial Blood Oxygen Saturation 96.6 90-95 % Arterial Blood Base Excess 2.9 -9-1.8 mEq/L Arterial Blood Gas Delivery 5 Jarrod Test POS POS Test 04/01/17 21:19 04/02/17 06:23 04/02/17 06:53 04/02/17 06:58 Range/Units Bedside Glucose 229 153 70-90 mg/dl White Blood Count 20.10 4.8-10.8 K/uL Red Blood Count 4.95 4.2-5.4 M/uL Hemoglobin 15.0 12.0-16.0 g/dL Hematocrit 43.6 37-47 % Mean Corpuscular Volume 88.1 80-100 fL Mean Corpuscular Hemoglobin 30.3 25-34 pg Mean Corpuscular Hemoglobin Concent 34.4 32-36 g/dl Platelet Count 243 130-400 K/uL Mean Platelet Volume 10.0 7.4-10.4 fL Neutrophils (%) (Auto) 88.8 % Lymphocytes (%) (Auto) 4.6 % Monocytes (%) (Auto) 6.3 % Eosinophils (%) (Auto) 0.0 % Basophils (%) (Auto) 0.0 % Neutrophils # (Auto) 17.83 1.4-6.5 K/uL Lymphocytes # (Auto) 0.92 1.2-3.4 K/uL Monocytes # (Auto) 1.27 0.11-0.59 K/uL Eosinophils # (Auto) 0.00 0-0.5 K/uL Basophils # (Auto) 0.01 0-0.2 K/uL RDW Standard Deviation 44.9 36.4-46.3 fL RDW Coefficient of Variation 13.9 11.5-14.5 % Immature Granulocyte % (Auto) 0.3 % Immature Granulocyte # (Auto) 0.07 0.00-0.02 K/uL Sodium Level 133 136-145 mmol/L Potassium Level 3.7 3.5-5.1 mmol/L Chloride Level 100 98-107 mmol/L Carbon Dioxide Level 24 21-32 mmol/L Anion Gap 9.0 3-11 mmol/L Blood Urea Nitrogen 21 7-18 mg/dl Creatinine 0.75 0.60-1.20 mg/dl Est Creatinine Clear Calc Drug Dose 50.4 ml/min Estimated GFR () 83.7 Estimated GFR (Non- 72.2 BUN/Creatinine Ratio 28.3 10-20 Random Glucose 166 70-99 mg/dl Estimated Average Glucose 117 mg/dl Hemoglobin A1c 5.7 4.5-5.6 % Calcium Level 9.1 8.5-10.1 mg/dl Magnesium Level 1.9 1.8-2.4 mg/dl Total Bilirubin 0.7 0.2-1 mg/dl Direct Bilirubin 0.3 0-0.2 mg/dl Aspartate Amino Transf (AST/SGOT) 50 15-37 U/L Alanine Aminotransferase (ALT/SGPT) 78 12-78 U/L Alkaline Phosphatase 108 45-117 U/L Total Protein 7.2 6.4-8.2 gm/dl Albumin 2.6 3.4-5.0 gm/dl Lactic Acid Level 2.0 0.4-2.0 mmol/L Test 04/02/17 12:30 Range/Units Bedside Glucose 153 70-90 mg/dl Microbiology Results 04/01/17 Blood Culture, Received Pending 04/01/17 Blood Culture, Received Pending 04/01/17 MRSA DNA Surveillance Screen - Final, Complete Specimen Negative for MRSA by DNA Probe 04/02/17 Urine Culture, Received Pending Assessment & Plan HIDA scan reviewed. Appears to be acute cholecystitis. Due to extensive comorbidities recommend transfer. Discussed with Dr. Romero who has accepted the patient.
--- NOTE | 2017-04-02 14:52 | Discharge Summary ---
Discharge Summary Date of Service Apr 02, 2017. Discharge Summary Admission Date: Apr 01, 2017 at 17:27 Discharge Date: Apr 02, 2017 Discharge Disposition: Acute care facility Principal Diagnosis: Acute Cholecystitis, Aspiration Pneumonia, Hypertensive Urgency, Sepsis Procedures: CT Head: Senescent changes as above with no hemorrhage, mass effect, or evidence of acute territorial ischemia by CT criteria. CTA: 1. No central pulmonary emboli. Remainder of pulmonary arteries suboptimally assessed due to respiratory motion. 2. Extensive secretions within the bilateral lower lobe bronchi with mild bilateral lower lobe opacities. The findings raise the possibility of aspiration. 3. Moderate cardiomegaly. 4. Small hiatal hernia. CT ABD: 1. Significant suboptimal examination without oral and IV contrast. 2. Findings are consistent with acute cholecystitis. Surgical consultation is advised. 3. Moderate sigmoid diverticulosis without CT evidence of acute diverticulitis. 4. Patchy airspace opacities are seen dependently at both lung bases. There are trace pleural effusions, as well as fluid/secretions within the lower lobe airways. This could represent atelectasis versus pneumonia/aspiration pneumonitis. Clinical correlation will be required. 5. Additional findings as above. HIDA Scan: Abnormal study. Nonvisualization of the gallbladder. The findings are indicative of cystic duct obstruction and acute cholecystitis Consultations: Surgery, Pulmonology Pending Studies/Follow-Up: Follow up with Dr.Joseph Romero at [facility] for further management PLEASE REVIEW PAPER MEDICAL RECONCILIATION FOR COMPLETE MEDICATION RECONCILIATION Medication Reconciliation Continued Medications: Amlodipine (Norvasc) 5 Mg Tab 5 MG PO DAILY Calcium Carbonate-Vitamin D W/ (Caltrate 600 Plus) 1 Tab Tab 2 TABS PO DAILY Citalopram Hydrobromide (Celexa) 20 Mg Tab 20 MG PO DAILY, TAB Clopidogrel Bisulfate (Plavix) 75 Mg Tab 75 MG PO DAILY Cyclosporine (Ophth) (Restasis) 0.05 % Emu 1 DROP OPB Q12, BTL Fish Oil ([place]-3) 1 Ea Cap 1200 MG PO DAILY Fluticasone Propionate (Nasal) (Flonase Allergy Relief) 50 Mcg/Act Spr 2 SPRAYS VLADISLAV DAILY Htyydswhdvh-Srynghrdylj-Yvs C- (Glucosamine Chondroitin) 1 Tab Tab 1 TAB PO BID Lactulose (Chronulac) 10 Gm/15 Ml Syrp 45 ML PO BID PRN for Constipation Meclizine Hcl (Meclizine Hcl) 25 Mg Tab 25 MG PO QAM, TAB Mirabegron (Myrbetriq Er) 50 Mg Tab 50 MG PO DAILY Multiple Vitamins W/ Minerals (Theragran-M) 1 Tab Tab 1 TAB PO QAM Omeprazole (Prilosec) 40 Mg Cap 40 MG PO DAILY, CAP Oxycodone HCl (Oxycodone HCl ER) 15 Mg Tab 15 MG PO Q12 Oxycodone/Acetaminophen 5MG/325MG (Percocet 5MG/325MG) Tab 1 TABLET PO Q4H PRN for Pain, TAB Oxycodone/Acetaminophen 5MG/325MG (Percocet 5MG/325MG) Tab 2 TABS PO Q4H PRN for Severe Pain, TAB Sennosides-Docusate Sodium (Senna S) 1 Tab Tab 2 TABS PO BID Tizanidine Hcl (Zanaflex) 4 Mg Tab 4 MG PO DAILY, TAB [Protein Liquid] () 30 ML PO BID Admission Information HPI (per Admitting provider): Patient is an 86 yr female with PMH of MS, PVD, CKD III, Breast cancer s/p mastectomy, HTN, Paget's disease, dementia, Seizure disorder, TIA, H/O multiple falls and other problems presents from [facility] for evaluation of Nausea, vomiting, diarrhea and chronic abdominal pain. Patient is a poor historian and most of the history is obtained from Patient's niece, ER staff and old records. Patient has been having sore throat and cough associated with fever since 2-3 days duration. Family also reports that she has chronic abdominal pain and developed nausea, vomiting diarrhea since 2 days. She was noted to have high blood pressure and increased heart rate and so was sent to ED for further evaluation. Patient was found to be hypoxic in ED and complained of pleuritic chest pain. She is oriented and mental status seemed to be at baseline. She complains of generalized abdominal pain. No known history of aspiration per family. Also no recent antibiotic use. No other history could be obtained as patient has dementia and is poor historian. Physical Exam (per Admitting): General Appearance: WD/WN, + pertinent finding (mild distress ) Head: normocephalic, atraumatic Eyes: normal inspection, PERRL, EOMI, sclerae normal ENT: normal ENT inspection, hearing grossly normal Neck: supple, trachea midline Respiratory/Chest: no accessory muscle use, + decreased breath sounds, + rhonchi, + pertinent finding (mild chest tenderness) Cardiovascular: regular rate, rhythm, no edema, no murmur, + tachycardia Abdomen/GI: normal bowel sounds, soft, + tenderness (generalized, no rebound , guarding) Back: normal inspection Extremities/Musculoskelatal: normal inspection, no pedal edema Neurologic/Psych: carton liner II-XII nml as tested, no motor/sensory deficits (able to move all extremities), alert, normal mood/affect, oriented x 3 Skin: normal color, warm/dry Hospital Course Sepsis: secondary to HCAP, acute cholecystitis Acute Hypoxic Respiratory failure: HCAP: Aspiration Pneumonia Presented with Hypoxia, 87 % on RA CTA :No pulmonary emboli. B/L lower lobe opacities. Possible aspiration Continue IV Zosyn, Levaquin IV fluids as clinically dry Procalcitonin: normal lactate normalized Speech and swallow eval NPO for now Duonebs, Oxygen support Aspiration precautions Pulmonology consulted Blood/Urine culture: pending flu, MRSA screen: negative Acute Cholecystitis: HIDA scan:Nonvisualization of the gallbladder. findings suggestive of cystic duct obstruction and acute cholecystitis Surgery consulted check stool for c.diff if diarrhea reoccurs Appreciate Surgery Input Needs percutaneous cholecystostomy tube as patient is not a good surgical candidate Planned to be transferred to [facility] for further management Hypertensive Urgency: Amlodipine on hold as NPO Labetelol PRN Denies headache CT head: no acute process BP better Hypokalemia/Dehydration: Secondary to GI loses Replace and monitor Prediabetes: No h/o DM A1C: 5.7 ISS H/O MS: Zanaflex PRN on hold as NPO Follows with as outpatient PVD: plavix on hold as NPO CKD III: Cr at baseline H/O Breast cancer s/p mastectomy complains of chest pain at surgical site Troponin X 2: negative ECHO pending Dementia: Mental status seemed to be at baseline CT head noted H/O Seizure disorder: Phenobarbital on hold Ativan PRN siezures H/O multiple falls PT/OT DVT Px: Heparin SQ Code Status: DNI/DNR on my discussion with patient's Niece (POA) and old records Disposition: Plan to transferred to [facility] for further management (Possible percutaneous cholecystostomy tube placement) Total time spent on discharge = 40 minutes This includes examination of the patient, discharge planning, medication reconciliation, and communication with other providers. Discharge Instructions Discharge Instructions Date of Service Apr 02, 2017. Admission Reason for Admission: Pneumonia Discharge Discharge Diagnosis / Problem: Acute Cholecystitis, Aspiration Pneumonia, Hypertensive Urgency, Sepsis Discharge Goals Goal(s): Decrease discomfort, Improve function Activity Recommendations Activity Level: Bedrest . Additional Information Patient informed of condition: Yes Advance Directives: Yes DNR: Yes Level of Care: Other Communicable Disease: No Prognosis: Stable Oxygen at (LPM): 2L NC [place] Catheter: Yes Instructions / Follow-Up Instructions / Follow-Up Follow up with Dr.Joseph Romero at [facility] for further management Current Hospital Diet Patient's current hospital diet: NPO Discharge Diet Recommended Diet: N/A Procedures Procedures Performed: HIDA scan CT ABD CTA chest CT head Pending Studies Studies pending at discharge: yes List of pending studies: Blood/Urine/Sputum culture Physician Orders On Transfer IV Therapy: IV Zosyn, Levaquin, IV fluids Laboratory Results Hemoglobin A1c Test 04/02/17 06:53 Range/Units Estimated Average Glucose 117 mg/dl Hemoglobin A1c 5.7 H 4.5-5.6 % Lipid Panel Test 03/16/17 05:00 Range/Units Triglycerides Level 90 0-150 mg/dl Cholesterol Level 166 0-200 mg/dl HDL Cholesterol 59 mg/dl Cholesterol/HDL Ratio 2.8 LDL Cholesterol, Calculated 89 mg/dl Medical Emergencies . Who to Call and When: Medical Emergencies: If at any time you feel your situation is an emergency, please call 911 immediately. . Non-Emergent Contact Non-Emergency issues call your: Primary Care Provider, Surgeon Call Non-Emergent contact if: you have a fever, your pain is not controlled, your pain is worsening, your pain is unusual for you, your pain is concerning you, you have any medication questions Seek immediate medical attention if your symptoms reoccur or worsen . . "Provider Documentation" section prepared by Robinson Lemos. . Core Measure Problem Core Measures: None <Electronically signed by Robinson Lemos MD> Signed: 04/02/17 [id number] Signed: The status of this report is Signed * If report status is Draft, the document has not been finalized by the responsible provider.
--- NOTE | 2017-04-03 11:25 | ECHOCARDIOGRAM REPORT ---
*NOTICE TO RECEIVING [employer]Y This information is strictly Confidential and protected under [place] law. [place] law prohibits you from making any further disclosure of this information unless further disclosure is expressly permitted by the written consent of the person to whom it pertains or is authorized by law. A general authorization for the release of medical or other information is not sufficient for this purpose. Hospital accepts no responsibility if the information is made available to any other person, INCLUDING THE PATIENT. Interpretation Summary * Name: NAVYA GIBBONS Study Date: 04/02/2017 02:03 PM BP: 175/114 mmHg * Patient Location: .2E\S\E210\S\1 HR: 105 * : 1930 (M/d/yyyy) Gender: Female Height: 66 in * Age: 86 yrs Ethnicity: CA Weight: 149 lb * Ordering Physician: Robinson Lemos * Referring Physician: Self, Referred * Performed By: Yovana Leal RDCS * * Reason For Study: Chest pain * BSA: 1.8 m2 * -- Conclusions -- * The left ventricle is normal in size. * There is borderline concentric left ventricular hypertrophy. * Left ventricular systolic function is normal. * Ejection Fraction = 60-65%. * Aortic valve sclerosis mild, without significant aortic valvular stenosis. * There is trace mitral regurgitation. Procedure Details * A complete two-dimensional transthoracic echocardiogram was performed (2D, M-mode, Doppler and color flow Doppler). * A contrast injection of Definity was performed to improve assessment of LV function. * Contrast was injected into an intravenous site in the right arm. * One vial of Definity ultrasound contrast was diluted in normal saline to a total volume of 10 ml. A total of '2' ml of solution was administered during imaging. * Lot # [id number] of Definity utilized for procedure. * Expiration date Apr 27. * The attending nurse who injected the contrast agent was Danni Yang RN. Left Ventricle * The left ventricle is normal in size. * There is borderline concentric left ventricular hypertrophy. * Ejection Fraction = 60-65%. * Left ventricular systolic function is normal. * The left ventricular wall motion is normal. Right Ventricle * The right ventricle is normal size. * The right ventricular systolic function is normal. Atria * The left atrial size is normal. * Right atrial size is normal. * The interatrial septum is intact with no evidence for an atrial septal defect. Mitral Valve * There is mild to moderate mitral annular calcification. * There is trace mitral regurgitation. Tricuspid Valve * The tricuspid valve anatomy is normal. * Significant tricuspid regurgitation is absent. Aortic Valve * Aortic valve sclerosis mild, without significant aortic valvular stenosis. * There is no significant aortic regurgitation. Pulmonic Valve * The pulmonic valve is not well visualized. * There is no significant pulmonary regurgitation. Great Vessels * The aortic root and proximal ascending aorta are normal sized. Pericardium/Pleural * There is no pericardial effusion. MMode 2D Measurements and Calculations IVSd 0.93 cm LVIDd 2.4 cm LVIDs 1.6 cm LVPWd 1.2 cm IVS/LVPW 0.77 FS 32.0 % EDV(Teich) 20.5 ml ESV(Teich) 7.7 ml EF(Teich) 62.6 % EDV(cubed) 14.1 ml ESV(cubed) 4.4 ml EF(cubed) 68.6 % LV mass(C)d 67.4 grams LV mass(C)dI 38.2 grams/m\S\2 SV(Teich) 12.8 ml SI(Teich) 7.3 ml/m\S\2 SV(cubed) 9.7 ml SI(cubed) 5.5 ml/m\S\2 Ao root diam 3.2 cm Ao root area 7.8 cm\S\2 ACS 1.6 cm LA dimension 2.2 cm asc Aorta Diam 3.0 cm LA/Ao 0.68 LVOT diam 2.0 cm LVOT area 3.0 cm\S\2 LVAd ap4 21.2 cm\S\2 LVLd ap4 7.3 cm EDV(MOD-sp4) 51.9 ml EDV(sp4-el) 52.4 ml LVAs ap4 10.4 cm\S\2 LVLs ap4 5.2 cm ESV(MOD-sp4) 17.2 ml ESV(sp4-el) 17.9 ml EF(MOD-sp4) 66.9 % EF(sp4-el) 65.9 % LVAd ap2 19.9 cm\S\2 LVLd ap2 6.5 cm EDV(MOD-sp2) 48.2 ml EDV(sp2-el) 51.7 ml LVAs ap2 10.9 cm\S\2 LVLs ap2 5.3 cm ESV(MOD-sp2) 18.1 ml ESV(sp2-el) 18.9 ml EF(MOD-sp2) 62.6 % EF(sp2-el) 63.4 % LVLd %diff -12.14 % EDV(MOD-bp) 50.8 ml LVLs %diff 2.0 % ESV(MOD-bp) 17.8 ml EF(MOD-bp) 64.9 % SV(MOD-sp4) 34.7 ml SI(MOD-sp4) 19.7 ml/m\S\2 SV(MOD-sp2) 30.2 ml SI(MOD-sp2) 17.1 ml/m\S\2 SV(MOD-bp) 32.9 ml SI(MOD-bp) 18.7 ml/m\S\2 SV(sp4-el) 34.5 ml SI(sp4-el) 19.6 ml/m\S\2 SV(sp2-el) 32.8 ml SI(sp2-el) 18.6 ml/m\S\2 Doppler Measurements and Calculations MV E max [place] 131.0 cm/sec MV dec time 0.14 sec Ao V2 max 120.7 cm/sec Ao max PG 5.8 mmHg Ao max PG (full) 3.0 mmHg ROMEL(V,A) 2.1 cm\S\2 ROMEL(V,D) 2.1 cm\S\2 LV V1 max PG 2.8 mmHg LV V1 max 83.4 cm/sec PA V2 max 93.7 cm/sec PA max PG 3.5 mmHg PA acc slope 918.4 cm/sec\S\2 PA acc time 0.08 sec PI max [place] 173.7 cm/sec PI max PG 12.1 mmHg PI dec slope 157.2 cm/sec\S\2 PI P1/2t 323.6 msec TR max [place] 253.4 cm/sec PA pr(Accel) 41.0 mmHg
== END 2017-04-02 19:43 | disposition short-term general hospital (02) | DRG 871 ==
LOC: EDBD 15:23 → C.EDA 15:24 → C.2E 17:27 → ENRESERV 17:39
PROVIDERS: ADMIT Hospitalist; ATTEND Internal Medicine
DX: A41.9 Sepsis, unspecified organism (principal); J69.0 Pneumonitis due to inhalation of food and vomit; J96.01 Acute respiratory failure with hypoxia; K81.0 Acute cholecystitis; Z66 Do not resuscitate; N18.3 Chronic kidney disease, stage 3 (moderate); I12.9 Hypertensive chronic kidney disease with stage 1 through stage 4 chronic kidney disease, or unspecified chronic kidney disease; G35 Multiple sclerosis; I73.9 Peripheral vascular disease, unspecified; G40.909 Epilepsy, unspecified, not intractable, without status epilepticus; E87.6 Hypokalemia; E86.0 Dehydration; Z85.3 Personal history of malignant neoplasm of breast; F03.90 Unspecified dementia, unspecified severity, without behavioral disturbance, psychotic disturbance, mood disturbance, and anxiety; Z86.73 Personal history of transient ischemic attack (TIA), and cerebral infarction without residual deficits; Z87.01 Personal history of pneumonia (recurrent)

== ENCOUNTER → 2017-04-01 | Outpatient (CLI) | payer OTHER ==
[2017-04-01 08:40] LABS: BASO % 0.1 %; BASO ABS # 0.02 K/uL (0-0.2); COMPLETE YES; HEMATOCRIT 44.5 % (37-47); IG% 0.2 %; LYMPH % 5.5 %; LYMPH ABS # 0.91 K/uL (1.2-3.4); MEAN CELL VOLUME 87.8 fL (80-100); MEAN CORPUSCULAR HEMOGLOBIN 30.4 pg (25-34); MEAN CORPUSCULAR HGB CONC 34.6 g/dl (32-36); MONO % 5.7 %; NEUT % 88.5 %; PLATELET COUNT 245 K/uL (130-400); RED BLOOD COUNT 5.07 M/uL (4.2-5.4); WHITE BLOOD COUNT 16.56 K/uL (4.8-10.8)
[2017-04-01 08:49] LABS: BLOOD UREA NITROGEN 15 mg/dl (7-18); BUN/CREATININE RATIO 21.7 (10-20); CALCIUM 9.2 mg/dl (8.5-10.1); CARBON DIOXIDE 25 mmol/L (21-32); CHLORIDE 96 mmol/L (98-107); GLUCOSE 186 mg/dl (70-99); SODIUM 132 mmol/L (136-145)
== END | disposition home or self-care (01) ==
LOC: C.LABCC 08:25
PROVIDERS: ATTEND Internal Medicine
DX: R11.10 Vomiting, unspecified (principal); R19.7 Diarrhea, unspecified; R50.9 Fever, unspecified

== ENCOUNTER → 2017-04-10 | Outpatient (CLI) | payer OTHER ==
[~2017-04-10] MED LIST changes: +CITA20TA9 PO; -CYCL0.05 OPB; +CYCL0.052 OPB; -FLNIN NAE; +FLUT0.15 NAE; -IMD2X PO; +LACT10SO17 PO; -LCTL45 PO; +MECL1TAB42 PO; +MIRA1TAB3 PO; -MOML PO; +MULT-116 PO; -OMEP40CA PO; +OMEP40CA41 PO; -OXYC15TA89 PO; -PHEN32.44 PO; -POLY1POW2 PO; -PRNJ PO; +PROTEIN LIQUID PO; -SENN-65 PO; +SENN-91 PO; -TIZA4CAP PO; +TIZA4TAB3 PO; -[UNRECOGNIZED DRUG - CODE] MT; +[UNRECOGNIZED DRUG - CODE] PO
[2017-04-10 08:59] LABS: BLOOD UREA NITROGEN 22 mg/dl (7-18); BUN/CREATININE RATIO 23.8 (10-20); CALCIUM 8.6 mg/dl (8.5-10.1); CARBON DIOXIDE 30 mmol/L (21-32); CHLORIDE 93 mmol/L (98-107); CREATININE 0.93 mg/dl (0.60-1.20); GLUCOSE 94 mg/dl (70-99); POTASSIUM 2.8 mmol/L (3.5-5.1); SODIUM 132 mmol/L (136-145)
== END ==
LOC: C.LABCC 08:27
PROVIDERS: ATTEND Internal Medicine
DX: I10 Essential (primary) hypertension (principal)

== ENCOUNTER → 2017-04-12 | Outpatient (CLI) | payer OTHER | LOC: C.LABCC 14:15 | PROVIDERS: ATTEND Internal Medicine | DX: R41.82 Altered mental status, unspecified (principal) ==

== ENCOUNTER → 2017-04-15 | Outpatient (CLI) | payer OTHER ==
[2017-04-15 08:52] LABS: BASO % 0.4 %; BASO ABS # 0.03 K/uL (0-0.2); COMPLETE YES; EOS % 4.5 %; IG% 0.3 %; LYMPH % 23.1 %; LYMPH ABS # 1.58 K/uL (1.2-3.4); MEAN CELL VOLUME 88.6 fL (80-100); MEAN CORPUSCULAR HEMOGLOBIN 30.4 pg (25-34); MEAN CORPUSCULAR HGB CONC 34.3 g/dl (32-36); MEAN PLATELET VOLUME 9.3 fL (7.4-10.4); MONO % 8.9 %; NEUT % 62.8 %; PLATELET COUNT 346 K/uL (130-400); RED BLOOD COUNT 3.95 M/uL (4.2-5.4); WHITE BLOOD COUNT 6.84 K/uL (4.8-10.8)
[2017-04-15 09:41] LABS: ALT/SGPT 84 U/L (12-78); BLOOD UREA NITROGEN 23 mg/dl (7-18); BUN/CREATININE RATIO 28.4 (10-20); CALCIUM 8.4 mg/dl (8.5-10.1); CARBON DIOXIDE 34 mmol/L (21-32); CHLORIDE 96 mmol/L (98-107); GLUCOSE 98 mg/dl (70-99); POTASSIUM 3.2 mmol/L (3.5-5.1); SODIUM 135 mmol/L (136-145)
[2017-04-15 09:44] LABS: ALB/GLOB RATIO 0.6 (0.9-2); ALKALINE PHOSPHATASE 204 U/L (45-117); AST/SGOT 62 U/L (15-37)
== END ==
LOC: C.LABCC 08:15
PROVIDERS: ATTEND Internal Medicine
DX: J18.9 Pneumonia, unspecified organism (principal)

== ENCOUNTER → 2017-04-20 | Outpatient (CLI) | payer OTHER ==
[2017-04-20 08:29] LABS: ALT/SGPT 32 U/L (12-78); BLOOD UREA NITROGEN 22 mg/dl (7-18); BUN/CREATININE RATIO 25.8 (10-20); CALCIUM 8.8 mg/dl (8.5-10.1); CARBON DIOXIDE 31 mmol/L (21-32); CHLORIDE 96 mmol/L (98-107); CREATININE 0.84 mg/dl (0.60-1.20); GLUCOSE 93 mg/dl (70-99); POTASSIUM 3.5 mmol/L (3.5-5.1); SODIUM 133 mmol/L (136-145)
[2017-04-20 08:32] LABS: ALB/GLOB RATIO 0.6 (0.9-2); ALKALINE PHOSPHATASE 126 U/L (45-117); AST/SGOT 22 U/L (15-37)
== END ==
LOC: C.LABCC 07:53
PROVIDERS: ATTEND Internal Medicine
DX: E87.6 Hypokalemia (principal); R94.5 Abnormal results of liver function studies

== ENCOUNTER → 2017-05-05 | Outpatient (CLI) | payer OTHER ==
[~2017-05-05] MED LIST changes: -AMLO-110 PO; +AMLO5TAB3 PO; -LACT10SO17 PO; +LACT10SO3 PO
[2017-05-05 10:13] LABS: BLOOD UREA NITROGEN 23 mg/dl (7-18); CALCIUM 8.7 mg/dl (8.5-10.1); CARBON DIOXIDE 30 mmol/L (21-32); CREATININE 0.72 mg/dl (0.60-1.20); GLUCOSE 102 mg/dl (70-99); POTASSIUM 3.7 mmol/L (3.5-5.1); SODIUM 136 mmol/L (136-145)
== END ==
LOC: C.LABCC 09:28
PROVIDERS: ATTEND Internal Medicine
DX: E87.6 Hypokalemia (principal)

== ENCOUNTER → 2017-05-15 | Outpatient (CLI) | payer OTHER | LOC: C.LABCC 12:28 | PROVIDERS: ATTEND Internal Medicine | DX: R41.82 Altered mental status, unspecified (principal) ==

== ENCOUNTER → 2017-05-30 | Outpatient (CLI) | payer OTHER ==
[~2017-05-30] MED LIST changes: +AMLO-110 PO; -AMLO5TAB3 PO; +LACT10SO17 PO; -LACT10SO3 PO
--- NOTE | 2017-06-12 10:10 | CODING QUERY NO DIAGNOSIS ---
TREATMENT RENDERED WITHOUT A DIAGNOSIS : 30 To promote full compliance with coding requirements relating to patient care, physician participation is requested in all cases of meat dresser uncertainty. Please assist us with providing a diagnosis/symptom for the test(s) below: A diagnosis/symptom was not documented on your Order. A valid diagnosis/symptom is required to bill all insurances. Please remember that we are unable to code a diagnosis of rule out, probable, possible, questionable, or suspected. Tests that require a diagnosis: DOS: 05/30/17 * UA CLEAN CATCH DIAGNOSIS: * URINE CULTURE CLEAN DIAGNOSIS: Provider Signature: Date: Thank you Noy B[facility] Information Management Once completed, please kindly fax back to [phone] For questions please call [phone]
== END ==
LOC: C.LABSPEC 10:49
PROVIDERS: ATTEND Internal Medicine
DX: Z01.89 Encounter for other specified special examinations (principal)